=== PATIENT | female | born 1940 | race Caucasian/White ===

== ENCOUNTER 2020-03-31 15:25 | IRF | payer MEDICARE, SELFPAY ==
[2020-03-31 16:00] VITALS: BP 142/85; PULSE 84; RESP 18; TEMP 36.9; O2SAT 100; BMI 25.5
--- NOTE | 2020-03-31 16:07 | ADMGEN ---
This patient, Faviola Wren, was admitted to [facility] Room 222-02. Patient/family oriented to hospital policies and general routines including ID bracelet, bed and alarms, visiting hours, pain management, procedures, bathroom and other care routines, personal items, smoking policy, room service/diet, and visiting hours. Information on how to activate the Rapid Response Team has been discussed. Patient/Family are encouraged to report perceived risks to care and to ask questions if they do not understand what they are told or what they should do. 1525 Patient arrived to floor, very pleasant, knows name but not exactly where she is. Reported by ems that she was told several times what hospital she was going to., also reported by ems that patient has a history of dementia which was not reported to me from the hospital. Daughter at bedside at this time.
[2020-03-31] MEDS: DICYCLOMINE HCL 10 MG CAPSULE 20 MG PO ×2 (19:05→20:51)
[2020-03-31] MEDS: PANTOPRAZOLE 40 MG TABLET PO (19:05)
[2020-03-31 20:00] VITALS: PULSE 103; RESP 14; O2SAT 98
[2020-03-31 20:45] VITALS: BP 140/79; PULSE 103; RESP 14; TEMP 36.9; O2SAT 98
[2020-03-31] MEDS: ATORVASTATIN 40 MG TABLET PO (20:51)
[2020-04-01 04:44] LABS: Basophils Absolute Auto 0.1 K/mm3 (0.0-0.1); Basophils Percent Auto 0.9 % (0.2-1.2); Eosinophils Absolute Auto 0.3 K/mm3 (0-0.3); Eosinophils Percent Auto 3.9 % (0-4.4); Hemoglobin 13.2 g/dL (12.0-15.0); Immature Granulocyte Absolute 0.04 K/mm3 (0.00-0.031); Immature Granulocyte Percent A 0.5 % (0-0.5); Lymphocytes Absolute Auto 2.32 K/mm3 (0.9-3.2); Lymphocytes Percent Auto 29.3 % (18.3-44.2); Mean Corpuscular HGB Conc 33.8 g/dl (32-36); Mean Corpuscular Hemoglobin 30.6 pg (26-34); Mean Corpuscular Volume 90.3 fl (80-100); Mean Platelet Volume 9.6 fl (7.4-10.4); Monocytes Absolute Auto 0.5 K/mm3 (0.1-0.6); Monocytes Percent Auto 6.4 % (2.6-8.5); Neutrophils Absolute Auto 4.7 K/mm3 (1.3-6.7); Platelet Count Result 272 k/mm3 (150-375); Red Blood Count 4.32 M/mm3 (4.2-5.4); Red Cell Distribution Width 11.9 % (11.5-14.5); White Blood Count 7.9 K/mm3 (4.5-10.0)
[2020-04-01 04:58] LABS: Anion Gap 3 mmol/L (8-16); Blood Urea Nitrogen 20 mg/dL (7-17); Calcium 9.3 mg/dL (8.4-10.2); Carbon Dioxide 31 mmol/L (22-30); Chloride 104 mmol/L (98-107); Estimated CRCL calculation 42 ml/min; Estimated Glomerular Filt Rate > 60; Glucose 107 mg/dL (65-105); Potassium 4.1 mmol/L (3.4-5.0); Sodium 138 mmol/L (137-145)
[2020-04-01 05:37] VITALS: BP 133/85; PULSE 103; RESP 12; TEMP 35.9; O2SAT 96
[2020-04-01] MEDS: CLOPIDOGREL BISULFATE 75 MG TABLET PO (11:12)
[2020-04-01] MEDS: ASPIRIN 81 MG CHEWABLE TABLET PO (11:12)
[2020-04-01] MEDS: DICYCLOMINE HCL 10 MG CAPSULE 20 MG PO ×4 (11:13→21:00)
[2020-04-01] MEDS: EZETIMIBE 10 MG TABLET PO (11:13)
[2020-04-01] MEDS: PANTOPRAZOLE 40 MG TABLET PO ×2 (11:13→17:18)
--- NOTE | 2020-04-01 11:52 | PM.IMHP ---
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 The patient was face to face seen by this examiner at 11:30 a.m. on April 01, 2020 The patient is an 80-year-old right-handed white woman with a past medical history of hypertension who presented to [facility] on March 26, 2020. The patient reported walking into a catching on the day of admission and having an acute onset of severe dizziness followed by headache on the right side. She was noted to have nystagmus to the right and severe dizziness and continued since this event and she was barely able to move from the bed without worsening symptoms. CT of the showed no definite evidence of acute intracranial hemorrhage. Brain MRI demonstrated an acute infarct in the paramedian inferior left cerebellar hemisphere with extension into the posterior paramedian left superior carmina / superior middle a in the left PICA distribution. The carotid ultrasound showed 50 to 79% is stenosis in the left internal carotid artery and no stenosis in the right. Chest x-ray revealed mildly hyperinflated lungs without definite evidence of focal consolidation and mild prominence of pulmonary vasculature. MRA showed no significant stenosis of any of the intracranial vasculature and the left PICA was noted to be intact at the takeoff from the left vertebral. The patient was noted to have binocular diplopia that is horizontal in orientation. Echocardiogram showed ejection fraction of 65%. Neurology order to continue aspirin statin and Plavix The patient has not traveled outside the [place] contact with someone who is ill that has traveled outside the [place] in the past 21 days. The patient has not traveled to [place] of the [place] that is experiencing no transmission of the Coronavirus and has not had close personal contact with anyone that has. The patient does not have a fever. The patient is not experiencing low respiratory illness symptoms. Therapy was initiated at the acute care facility and the patient was transferred to us from [facility] on March 31, 2020. The patient has had no major surgery in the last days. Patient has had no falls in the past year. Patient has had no falls with injury in the past year. Past medical history, headaches, migraines, hyperlipidemia, hypertension, dizziness, near-syncope, UTI, nystagmus, peripheral vertigo Past surgical history hysterectomy and bilateral foot surgery. Family history patient denies any family history of strokes or clotting disorders. Social history the patient lives in a 2 story home with daughter Charlene. Charlene is able to assist the patient after discharge from rehab. There are 16 stressed to the patient's bedroom on the 2nd floor and 1 step to enter the home. The patient stated she has not had any surgery in the past and days, she denies any falls in the past year. She never smoked no drug use is alcohol monthly or less. The patient is unable to recall any family history in particular family history of any close relatives at Prior level of functions was quite independent in all spheres of daily activities including ambulating at least 750 feet independently without assistive device and she was able to navigate 16 stairs independently. Current level function is as follows Eating supervision, oral care is supervision, toileting hygiene is substantial maximal, shower bath substantial maximal, Sineff bodies partial moderate, lower body substantial maximal, foot very substantial maximal, rolling left to right supervision, sit to lying is dependent, lying to sitting is dependent, [id number] is dependent, bed to
[2020-04-01 14:00] VITALS: BP 142/78; PULSE 92; RESP 18; TEMP 36.2; O2SAT 98
[2020-04-01 14:43] VITALS: BMI 25.5
--- NOTE | 2020-04-01 14:57 | PCNSR ---
On 04/01/20, the student, Shannon Pearson, provided care and completed [facility] documentation on this patient. I have reviewed the student's documentation and agree with the findings.
[2020-04-01 20:00] VITALS: O2SAT 98
[2020-04-01] MEDS: ATORVASTATIN 40 MG TABLET PO (21:00)
[2020-04-01 22:00] VITALS: BP 110/60; PULSE 86; RESP 17; TEMP 36.3; O2SAT 98
[2020-04-02] MEDS: polyethylene glycoL 3350 17 GM POWD.PACK PO ×2 (02:23→21:44)
[2020-04-02 03:52] LABS: Add Urine Microscopic? YES; Appearance Urine Clear (Clear); Bilirubin Urine Negative (Negative); Blood Urine 1+ (Negative); Color Urine Straw (Yellow); Glucose Urine UA Negative (Negative); Ketones Urine Negative (Negative); Leukocyte Esterase Ur Negative LEU/UL (Negative); Mucus Urine Rare /lpf; Nitrate Urine Negative (Negative); Protein Urine Negative (Negative); Specific Grav Ur 1.006 (1.001-1.035); Squamous Epithelial Cell Urine Rare /hpf (Few); Urobilinogen Urine Negative mg/dL (<2.0); WBC Urine 0-3 /hpf
--- NOTE | 2020-04-02 04:00 | PC.NURSE ---
)0315 pt unable to urinate after several tries.Bladder scan showed 966 ml. Straight cathed produced 1250 ml. UA with flex to culture sent.
[2020-04-02 06:00] VITALS: BP 125/74; PULSE 80; RESP 20; TEMP 37; O2SAT 94
[2020-04-02] MEDS: PANTOPRAZOLE 40 MG TABLET PO ×2 (09:08→16:54)
[2020-04-02] MEDS: CLOPIDOGREL BISULFATE 75 MG TABLET PO (09:08)
[2020-04-02] MEDS: DICYCLOMINE HCL 10 MG CAPSULE 20 MG PO ×4 (09:09→20:48)
[2020-04-02] MEDS: ASPIRIN 81 MG CHEWABLE TABLET PO (09:09)
[2020-04-02] MEDS: EZETIMIBE 10 MG TABLET PO (09:09)
--- NOTE | 2020-04-02 12:01 | WPDNEURORHBP ---
Subjective Date/time seen: 04/02/20 12:01 Interval history: this 80-year-old woman is here after having had a brainstem stroke involving the cerebellar hemispheres carmina and medulla which has left her with the ataxia gait trouble and abnormal finger to kwok heel to [id number] and ataxia The patient denies any headache nausea vomiting chest pain shortness of breath fever chills sore throat Review of Systems Review of Systems: All systems reviewed & are unremarkable except as noted in HPI and below Functional Status Ambulation Ability Ability to Ambulate 10 Feet: Maximum Assistance X 1 Ambulation Assistive Devices: Walker, Wheeled Exam Narrative: Exam Narrative: patient is awake and alert well oriented she has ataxia of the gait imbalance and needing assistance abnormal [id number] and also positive Romberg otherwise no focal motor or sensory deficit or which is understandable considering it was a brainstem stroke and did not involve the the more over the sensory fibers Patient's head and neck examination is normal neck is supple lungs are clear cardiovascular examination is negative abdomen is soft nontender extremities reveal no deformity Objective Data Vital Signs Vital Signs: Vital Signs - 24 hr 04/01/20 14:00 04/01/20 20:00 04/01/20 22:00 Temperature 36.2 C L 36.3 C L Pulse Rate 92 86 Respiratory Rate 18 17 Blood Pressure 142/78 H 110/60 Pulse Oximetry 98 98 98 04/02/20 06:00 Temperature 37.0 C Pulse Rate 80 Respiratory Rate 20 Blood Pressure 125/74 Pulse Oximetry 94 Intake/Output Intake/Output: Intake & Output 03/30/20 03/31/20 04/01/20 04/02/20 23:59 23:59 23:59 23:59 Intake Total 720 100 Output Total 1250 Balance 720 -1150 Meds/Results Medications: Active Medications Generic Name Dose Route Start Last Admin Trade Name Freq PRN Reason Stop Dose Admin Acetaminophen 650 mg 03/31/20 16:42 Acetaminophen 325 Mg Tablet PO Q6H PRN Pain, Mild Aspirin 81 mg 04/01/20 09:00 04/02/20 09:09 Aspirin 81 Mg Chewable Tablet PO 81 mg DAILY PETE Administration Atorvastatin Calcium 40 mg 03/31/20 21:00 04/01/20 21:00 Atorvastatin 40 Mg Tablet PO 40 mg HS PETE Administration Benzonatate 100 mg 03/31/20 16:42 Benzonatate 100 Mg Capsule PO Q8H PRN Cough Bisacodyl 10 mg 03/31/20 16:42 Bisacodyl 5 Mg Tablet Ec PO Q24H PRN Constipation Clopidogrel Bisulfate 75 mg 04/01/20 09:00 04/02/20 09:08 Clopidogrel Bisulfate 75 Mg Tablet PO 75 mg DAILY PETE Administration Dicyclomine HCl 20 mg 03/31/20 17:00 04/02/20 09:09 Dicyclomine Hcl 10 Mg Capsule PO 20 mg QID PEET Administration Ezetimibe 10 mg 04/01/20 09:00 04/02/20 09:09 Ezetimibe 10 Mg Tablet PO 10 mg DAILY PETE Administration Magnesium Hydroxide 30 ml 03/31/20 16:42 Magnesium Hydroxide Susp 30 Ml Udc PO Q6H PRN Indigestion Meclizine HCl 25 mg 03/31/20 16:42 Meclizine Hcl 25 Mg Tablet PO Q8H PRN Dizziness Melatonin 5 mg 03/31/20 16:42 Melatonin 5 Mg Tablet PO HS PRN Sleep Pantoprazole Sodium 40 mg 03/31/20 17:00 04/02/20 09:08 Pantoprazole 40 Mg Tablet PO 40 mg BID PETE Administration Polyethylene Glycol 17 gm 03/31/20 16:42 04/02/20 02:23 Polyethylene Glycol 3350 17 Gm Powd.Pack PO 17 gm DAILY PRN Administration Constipation Labs Labs: Laboratory Results - last 24 hr 04/02/20 03:45 Urine Color Straw Urine Appearance Clear Urine pH 7.0 Ur Specific [place] 1.006 Urine Protein Negative Urine Glucose (UA) Negative Urine Ketones Negative Ur Blood (Man) 1+ H Urine Nitrate Negative Urine Bilirubin Negative Urine Urobilinogen Negative Leukocyte Esterase Rfl Negative Urine WBC 0-3 Ur Squamous Epith Cells Rare Urine Mucus Rare Progress Note: A&P Assessment and Plan (1) Hyperlipidemia: Code(s): E
--- NOTE | 2020-04-02 13:35 | PCNSR ---
On 04/02/20, the student, Shannon Pearson, provided care and completed [facility] documentation on this patient. I have reviewed the student's documentation and agree with the findings.
[2020-04-02 14:00] VITALS: BP 116/65; PULSE 97; RESP 18; TEMP 36.9; O2SAT 98
--- NOTE | 2020-04-02 16:14 | RPD ---
INDIVIDUALIZED PLAN OF CARE FOR Chikis [facility] Brief Synthesis of Pre-Admission Screen, Post-Admission Evaluation and Therapy Evaluations: The patient presents to rehab with acute left ICA ischemic stroke. Comorbidities include Headache, dizziness, near syncope, HTN, HLD, UTI, nystagmus, peripheral vertigo, hyponatremia, hyperglycemia. The patient requires physician services for neurology services, medical oversight, and coordination of care. Emotional needs will be monitored as depression is a common sequelae of stroke. The patient needs physician monitoring and treatment of anemia, dizziness, elevated blood pressure, hyponatremia, hyperglycemia, near syncope, monitoring for adverse reactions to new medications, monitoring of infection, pain control. The patient requires nursing services for frequent neuro checks, anticoagulation therapy, medication management and education, pressure relief and skin care management, monitoring of labs, bowel and bladder training, and fall/safety precautions. Deficits include: ADLs, Balance, Endurance, Family Training/Education, Mobility, Pain Management, Safety, Strength, Transfers,ROM Broker/Case Management for: Discharge Planning and Patient/Family Counseling Physical Therapy: 5 days per week for 75 minutes. Treatments may include: Therapeutic Exercise, Gait Training, Neuromuscular Re-education, Transfer Training, Community Reintegration, Bed Mobility, Patient/Family Education, Wheelchair Mobility Group Therapy/Concurrent Therapy Rationales: -Improve attention span during functional activities in a distracted environment. -Enhance problem solving and/or adequate judgment skills during functional activities in a distracted environment. -Promote increased safety awareness in a distracted environment to reduce fall risk with functional tasks, transfers, and ambulation to allow a more safe, self-sufficient return to the home environment. -Improve dynamic balance skills to promote safety and independence with functional activities in a distracted environment for maximum gain. Occupational Therapy: 5 days per week for 75 minutes. Treatments may include: Therapeutic Exercise, Therapeutic Activity, Cognitive Training, Self-Care Transfer Training, Community Reintegration, Home Management, Patient/Family Education, Wheelchair Mobility Training, Energy Conservation Training Group Therapy/Concurrent Therapy Rationales: -Allow therapist to observe and teach generalization and carry-over of skills learned in individual therapy. -Enhance problem solving and sequencing skills during therapeutic activities in a distracted environment. -Promote increased safety awareness in a realistic setting to reduce fall risk with functional tasks due to visual and verbal distractions. -Increase functional level with ADLs, ADL transfers and use of adaptive equipment through therapeutic activities with others while promoting safety to allow a more safe, self-sufficient return home. Speech Therapy: 5 days per week for 30 minutes. Treatments may include: Dysphasia Therapy, Speech/Language/Communication Therapy, Cognitive Training, Patient/Family Education Group Therapy/Concurrent Therapy - Rationale: -Allow therapist to observe and teach generalization and carry-over of skills learned in individual therapy. -Improve comprehension skills with complex or abstract ideas through discussion in a realistic setting. -Enhance problem solving skills with complex issues during activities in a distracted environment. -Promote increased memory skills and concentration in a distracted environment for a safe transition home. -Improve attention and focus with language/communication skills in a realistic and supportive therapeutic setting. -Allow for practice of expression of basic needs and ideas through functional activities with others. Medical Prognosis: Good Anticipated Length of Stay: 12 days Rehab Goals: Eating Goal: 06-Independent Oral Hygiene Goal:
[2020-04-02] MEDS: ATORVASTATIN 40 MG TABLET PO (20:48)
[2020-04-02] MEDS: SENNA/DOCUSATE SODIUM TABLET 2 TAB PO (20:48)
[2020-04-02 22:00] VITALS: BP 158/72; PULSE 73; RESP 16; TEMP 37.1; O2SAT 96
[2020-04-03 06:00] VITALS: BP 141/80; PULSE 90; RESP 16; TEMP 36.6; O2SAT 94
[2020-04-03] MEDS: PANTOPRAZOLE 40 MG TABLET PO ×2 (08:44→18:15)
[2020-04-03] MEDS: DICYCLOMINE HCL 10 MG CAPSULE 20 MG PO ×4 (08:44→20:31)
[2020-04-03] MEDS: CLOPIDOGREL BISULFATE 75 MG TABLET PO (08:44)
[2020-04-03] MEDS: ASPIRIN 81 MG CHEWABLE TABLET PO (08:44)
[2020-04-03] MEDS: EZETIMIBE 10 MG TABLET PO (08:44)
[2020-04-03 14:00] VITALS: BP 114/51; PULSE 92; RESP 18; TEMP 36.4; O2SAT 95
[2020-04-03] MEDS: ATORVASTATIN 40 MG TABLET PO (20:31)
[2020-04-03] MEDS: SENNA/DOCUSATE SODIUM TABLET 2 TAB PO (20:31)
[2020-04-03 21:32] VITALS: BP 121/68; PULSE 83; RESP 18; TEMP 37.1; O2SAT 95
[2020-04-04 06:00] VITALS: BP 150/76; PULSE 90; RESP 16; TEMP 36.3; O2SAT 97
[2020-04-04] MEDS: BISACODYL 5 MG TABLET EC 10 MG PO (09:58)
[2020-04-04] MEDS: ASPIRIN 81 MG CHEWABLE TABLET PO (09:59)
[2020-04-04] MEDS: DICYCLOMINE HCL 10 MG CAPSULE 20 MG PO (09:59)
[2020-04-04] MEDS: PANTOPRAZOLE 40 MG TABLET PO ×2 (09:59→17:30)
[2020-04-04] MEDS: EZETIMIBE 10 MG TABLET PO (09:59)
[2020-04-04] MEDS: CLOPIDOGREL BISULFATE 75 MG TABLET PO (09:59)
--- NOTE | 2020-04-04 11:03 | WPDNEURORHBP ---
Subjective Date/time seen: 04/04/20 11:03 Interval history: this 80-year-old woman is here after having had posterior cervical stool for stroke with ataxia does balance diplopia from which she is improving overall she denies any headache nausea vomiting chest pain shortness of breath the complain she has had the constipation she did move her bowel however she will continue to use stool softeners to clear her bowels she she is afebrile and progressing rehab Review of Systems Review of Systems: All systems reviewed & are unremarkable except as noted in HPI and below Functional Status Ambulation Ability Ability to Ambulate 10 Feet: Maximum Assistance X 1 Ambulation Assistive Devices: Walker, Wheeled Exam Narrative: Exam Narrative: the patient is awake alert well oriented time place and person improving diplopia and also the ataxia, she has not any distress eyes ear nose throat normal neck is supple lungs are clear cardiovascular examination stable extremities are removed from Objective Data Vital Signs Vital Signs: Vital Signs - 24 hr 04/03/20 14:00 04/03/20 21:32 04/04/20 06:00 Temperature 36.4 C L 37.1 C 36.3 C L Pulse Rate 92 83 90 Respiratory Rate 18 18 16 Blood Pressure 114/51 L 121/68 150/76 H Pulse Oximetry 95 95 97 Intake/Output Intake/Output: Intake & Output 04/01/20 04/02/20 04/03/20 04/04/20 23:59 23:59 23:59 23:59 Intake Total 720 580 720 360 Output Total 1250 1250 Balance 720 -670 -530 360 Meds/Results Medications: Active Medications Generic Name Dose Route Start Last Admin Trade Name Freq PRN Reason Stop Dose Admin Acetaminophen 650 mg 03/31/20 16:42 Acetaminophen 325 Mg Tablet PO Q6H PRN Pain, Mild Aspirin 81 mg 04/01/20 09:00 04/04/20 09:59 Aspirin 81 Mg Chewable Tablet PO 81 mg DAILY PETE Administration Atorvastatin Calcium 40 mg 03/31/20 21:00 04/03/20 20:31 Atorvastatin 40 Mg Tablet PO 40 mg HS PETE Administration Benzonatate 100 mg 03/31/20 16:42 Benzonatate 100 Mg Capsule PO Q8H PRN Cough Bisacodyl 10 mg 03/31/20 16:42 04/04/20 09:58 Bisacodyl 5 Mg Tablet Ec PO 10 mg Q24H PRN Administration Constipation Clopidogrel Bisulfate 75 mg 04/01/20 09:00 04/04/20 09:59 Clopidogrel Bisulfate 75 Mg Tablet PO 75 mg DAILY PETE Administration Dicyclomine HCl 20 mg 03/31/20 17:00 04/04/20 09:59 Dicyclomine Hcl 10 Mg Capsule PO 20 mg QID PETE Administration Ezetimibe 10 mg 04/01/20 09:00 04/04/20 09:59 Ezetimibe 10 Mg Tablet PO 10 mg DAILY PETE Administration Lactulose 30 gm 04/04/20 09:48 Lactulose 20 Gm/30 Ml Udc PO DAILY PRN Constipation Magnesium Hydroxide 30 ml 03/31/20 16:42 Magnesium Hydroxide Susp 30 Ml Udc PO Q6H PRN Indigestion Meclizine HCl 25 mg 03/31/20 16:42 Meclizine Hcl 25 Mg Tablet PO Q8H PRN Dizziness Melatonin 5 mg 03/31/20 16:42 Melatonin 5 Mg Tablet PO HS PRN Sleep Pantoprazole Sodium 40 mg 03/31/20 17:00 04/04/20 09:59 Pantoprazole 40 Mg Tablet PO 40 mg BID PETE Administration Polyethylene Glycol 17 gm 04/04/20 21:00 Polyethylene Glycol 3350 17 Gm Powd.Pack PO HS PETE Senna/Docusate Sodium 2 tab 04/02/20 21:00 04/03/20 20:31 Senna/Docusate Sodium Tablet PO 2 tab HS PETE Administration Progress Note: A&P Assessment and Plan (1) Hyperlipidemia: Code(s): E78.5 - Hyperlipidemia, unspecified Status: Acute (2) Nystagmus: Code(s): H55.00 - Unspecified nystagmus Status: Acute (3) Hypertension: Code(s): I10 - Essential (primary) hypertension Status: Acute (4) Diplopia: Code(s): H53.2 - Diplopia Status: Acute (5) Ataxia: Code(s): R27.0 - Ataxia, unspecified Status: Acute Additional Plan discussed with the patient we will relieve her constipation with the use of the multiple stool softeners an
[2020-04-04 14:00] VITALS: BP 116/66; PULSE 88; RESP 16; TEMP 36.4; O2SAT 98
[2020-04-04] MEDS: ATORVASTATIN 40 MG TABLET PO (20:44)
[2020-04-04] MEDS: SENNA/DOCUSATE SODIUM TABLET 2 TAB PO (20:44)
[2020-04-04] MEDS: BACLOFEN 10 MG TABLET PO (20:45)
[2020-04-04 20:52] VITALS: BP 116/86; PULSE 84; RESP 16; TEMP 36.9; O2SAT 98
[2020-04-05 06:00] VITALS: BP 116/64; PULSE 66; RESP 14; TEMP 36.1; O2SAT 99
[2020-04-05 08:00] VITALS: PULSE 66; RESP 14; O2SAT 99
[2020-04-05] MEDS: PANTOPRAZOLE 40 MG TABLET PO ×2 (09:51→17:21)
[2020-04-05] MEDS: EZETIMIBE 10 MG TABLET PO (09:52)
[2020-04-05] MEDS: BACLOFEN 10 MG TABLET PO ×2 (09:52→20:09)
[2020-04-05] MEDS: CLOPIDOGREL BISULFATE 75 MG TABLET PO (09:52)
[2020-04-05] MEDS: ASPIRIN 81 MG CHEWABLE TABLET PO (09:52)
--- NOTE | 2020-04-05 13:59 | WPDNEURORHBP ---
Subjective Date/time seen: 04/05/20 13:59 80 years old right-handed female admitted to the rehab floor with the diagnosis of stroke involving the left side and documentation of his stroke in PICA distribution involving parent median inferior left cerebellar hemisphere and paramedian left superior carmina and medulla, receiving aspirin 81 mg daily with atorvastatin 40 mg daily clopidogrel 75 mg daily and Zetia 10 mg daily routine lab on 04/01 normal Review of Systems Review of Systems: All systems reviewed & are unremarkable except as noted in HPI and below Functional Status Ambulation Ability Ability to Ambulate 10 Feet: Maximum Assistance X 1 Ability to Ambulate 50 Feet With 2 Turns: Maximum Assistance X 1 Ambulation Assistive Devices: Walker, Wheeled Exam Narrative: Exam Narrative: examination reveals her to be awake alert oriented x3 following the instructions fairly well,,, neck is supple with no restriction of range of motion no cervical bruit, heart regular ,lungs clear, no rhonchi, no crepitations, abdomen soft, no organomegaly, normal bowel sounds and neurological examination unchanged Objective Data Vital Signs Vital Signs: Vital Signs - 24 hr 04/04/20 14:00 04/04/20 20:52 04/05/20 06:00 Temperature 36.4 C L 36.9 C 36.1 C L Pulse Rate 88 84 66 Respiratory Rate 16 16 14 Blood Pressure 116/66 116/86 116/64 Pulse Oximetry 98 98 99 04/05/20 08:00 Temperature Pulse Rate 66 Respiratory Rate 14 Blood Pressure Pulse Oximetry 99 Intake/Output Intake/Output: Intake & Output 04/02/20 04/03/20 04/04/20 04/05/20 23:59 23:59 23:59 23:59 Intake Total 580 720 960 480 Output Total 1250 1250 1250 Balance -670 -530 960 -770 Meds/Results Medications: Active Medications Generic Name Dose Route Start Last Admin Trade Name Freq PRN Reason Stop Dose Admin Acetaminophen 650 mg 03/31/20 16:42 Acetaminophen 325 Mg Tablet PO Q6H PRN Pain, Mild Aspirin 81 mg 04/01/20 09:00 04/05/20 09:52 Aspirin 81 Mg Chewable Tablet PO 81 mg DAILY PETE Administration Atorvastatin Calcium 40 mg 03/31/20 21:00 04/04/20 20:44 Atorvastatin 40 Mg Tablet PO 40 mg HS PETE Administration Baclofen 10 mg 04/04/20 21:00 04/05/20 09:52 Baclofen 10 Mg Tablet PO 10 mg Q12HR PETE Administration Benzonatate 100 mg 03/31/20 16:42 Benzonatate 100 Mg Capsule PO Q8H PRN Cough Bisacodyl 10 mg 03/31/20 16:42 04/04/20 09:58 Bisacodyl 5 Mg Tablet Ec PO 10 mg Q24H PRN Administration Constipation Clopidogrel Bisulfate 75 mg 04/01/20 09:00 04/05/20 09:52 Clopidogrel Bisulfate 75 Mg Tablet PO 75 mg DAILY PETE Administration Dicyclomine HCl 20 mg 03/31/20 17:00 04/04/20 09:59 Dicyclomine Hcl 10 Mg Capsule PO 20 mg QID PETE Administration Ezetimibe 10 mg 04/01/20 09:00 04/05/20 09:52 Ezetimibe 10 Mg Tablet PO 10 mg DAILY PETE Administration Lactulose 30 gm 04/04/20 09:48 Lactulose 20 Gm/30 Ml Udc PO DAILY PRN Constipation Magnesium Hydroxide 30 ml 03/31/20 16:42 Magnesium Hydroxide Susp 30 Ml Udc PO Q6H PRN Indigestion Meclizine HCl 25 mg 03/31/20 16:42 Meclizine Hcl 25 Mg Tablet PO Q8H PRN Dizziness Melatonin 5 mg 03/31/20 16:42 Melatonin 5 Mg Tablet PO HS PRN Sleep Pantoprazole Sodium 40 mg 03/31/20 17:00 04/05/20 09:51 Pantoprazole 40 Mg Tablet PO 40 mg BID PETE Administration Polyethylene Glycol 17 gm 04/04/20 21:00 04/04/20 21:22 Polyethylene Glycol 3350 17 Gm Powd.Pack PO Not Given HS PETE Senna/Docusate Sodium 2 tab 04/02/20 21:00 04/04/20 20:44 Senna/Docusate Sodium Tablet PO 2 tab HS PETE Administration Progress Note: A&P Assessment and Plan (1) Hyperlipidemia: Code(s): E78.5 - Hyperlipidemia, unspecified Status: Acute (2) Hypertension: Code(s): I10 - Essential (primary) hypertension Status: A
[2020-04-05 14:00] VITALS: BP 95/52; PULSE 77; RESP 16; TEMP 36.1; O2SAT 98
[2020-04-05] MEDS: ATORVASTATIN 40 MG TABLET PO (20:09)
[2020-04-05] MEDS: SENNA/DOCUSATE SODIUM TABLET 2 TAB PO (20:09)
[2020-04-05] MEDS: polyethylene glycoL 3350 17 GM POWD.PACK PO (20:09)
[2020-04-05 22:00] VITALS: BP 115/54; PULSE 73; RESP 20; TEMP 36.1; O2SAT 98
[2020-04-06 06:00] VITALS: BP 136/64; PULSE 70; RESP 20; TEMP 36.3; O2SAT 98
[2020-04-06 08:00] VITALS: PULSE 70; RESP 20; O2SAT 98
[2020-04-06] MEDS: CLOPIDOGREL BISULFATE 75 MG TABLET PO (09:20)
[2020-04-06] MEDS: BACLOFEN 10 MG TABLET PO ×2 (09:21→21:02)
[2020-04-06] MEDS: PANTOPRAZOLE 40 MG TABLET PO ×2 (09:21→17:21)
[2020-04-06] MEDS: ASPIRIN 81 MG CHEWABLE TABLET PO (09:21)
[2020-04-06] MEDS: EZETIMIBE 10 MG TABLET PO (09:22)
--- NOTE | 2020-04-06 13:50 | WPDREHABHP ---
H&P: HPI History of Present Illness Date/Time: 04/06/20 13:50 80 years old right-handed female admitted to the rehab with diagnosis of his stroke involving the left side of the body along with the documentation of the stroke in the PICA distribution involving the inferior left cerebellar hemisphere and paramedian left superior carmina and medulla she is receiving aspirin 81 mg daily with atorvastatin 40 mg daily clopidogrel 75 mg daily and remains stable. Chief complaint: CVA Narrative: Chikis Wren is a 80 year old female Review of Systems Review of Systems All systems reviewed & are unremarkable except as noted in HPI and below PMFSH Past Medical History Medical History (Updated 04/01/20 @ 12:07 by Lebron Simon MD) Hyperlipidemia Hypertension Family History Family History Father Congestive heart failure Hypertension Mother Cancer of oral cavity Hypertension Sibling Diabetes mellitus Kidney failure Breast adenoma Social History Social History Smoking status: Never smoker Drinks per week: 4 Substance use: never Gender identity (if verbalized by the patient): Female Spiritual care concerns: No Meds Home Medications and Allergies Home Medications Medication Instructions Recorded Confirmed Type acetaminophen [Tylenol] 650 mg PO Q6H PRN 03/31/20 03/31/20 History aspirin 81 mg PO DAILY 03/31/20 03/31/20 History atorvastatin [Lipitor] 40 mg PO HS 03/31/20 03/31/20 History benzonatate [Tessalon Perles] 100 mg PO Q8H PRN 03/31/20 03/31/20 History bisacodyl [Dulcolax (bisacodyl)] 10 mg PO Q24H PRN 03/31/20 03/31/20 History clopidogrel [Plavix] 75 mg PO DAILY 03/31/20 03/31/20 History dicyclomine [Bentyl] 20 mg PO QID 03/31/20 03/31/20 History ezetimibe [Zetia] 10 mg PO DAILY 03/31/20 03/31/20 History magnesium hydroxide [Milk of 30 ml PO Q6H PRN 03/31/20 03/31/20 History Magnesia] meclizine 25 mg PO Q8H PRN 03/31/20 03/31/20 History melatonin 5 mg PO HS PRN 03/31/20 03/31/20 History pantoprazole [Protonix] 40 mg PO BID 03/31/20 03/31/20 History polyethylene glycol 3350 [Miralax] 17 g PO DAILY PRN 03/31/20 03/31/20 History Allergies Allergy/AdvReac Type Severity Reaction Status Date / Time Sulfa (Sulfonamide Allergy Hives Verified 03/31/20 16:47 Antibiotics) Vital Signs Vital Signs - 24 hr 04/05/20 14:00 04/05/20 22:00 04/06/20 06:00 Temperature 36.1 C L 36.1 C L 36.3 C L Pulse Rate 77 73 70 Respiratory Rate 16 20 20 Blood Pressure 95/52 L 115/54 L 136/64 Pulse Oximetry 98 98 98 04/06/20 08:00 Temperature Pulse Rate 70 Respiratory Rate 20 Blood Pressure Pulse Oximetry 98 Exam Narrative Exam Narrative: Examination today reveals her to be awake alert cooperative. She is following the instructions very well. Neck is supple with no restriction of the range of the motion. No cervical bruit. Heart regular with no murmur. Lungs clear with no rhonchi. Abdomen is soft with normal bowel sounds no tenderness and no organomegaly. Neurological examination unchanged. Assessment and Plan Assessment and plan (1) Hyperlipidemia: Code(s): E78.5 - Hyperlipidemia, unspecified Status: Acute (2) Hypertension: Code(s): I10 - Essential (primary) hypertension Status: Acute (3) Nystagmus: Code(s): H55.00 - Unspecified nystagmus Status: Acute (4) Diplopia: Code(s): H53.2 - Diplopia Status: Acute (5) Ataxia: Code(s): R27.0 - Ataxia, unspecified Status: Acute (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itional Plan Continue the treatment as such
[2020-04-06 14:00] VITALS: BP 104/69; PULSE 77; RESP 18; TEMP 36.1; O2SAT 99
[2020-04-06] MEDS: ATORVASTATIN 40 MG TABLET PO (21:02)
[2020-04-06] MEDS: SENNA/DOCUSATE SODIUM TABLET 2 TAB PO (21:02)
[2020-04-06] MEDS: polyethylene glycoL 3350 17 GM POWD.PACK PO (21:04)
[2020-04-06 22:00] VITALS: BP 129/72; PULSE 84; RESP 19; TEMP 36; O2SAT 100
[2020-04-07 06:00] VITALS: BP 135/66; PULSE 70; RESP 18; TEMP 36.1; O2SAT 98
[2020-04-07] MEDS: EZETIMIBE 10 MG TABLET PO (08:33)
[2020-04-07] MEDS: ASPIRIN 81 MG CHEWABLE TABLET PO (08:33)
[2020-04-07] MEDS: PANTOPRAZOLE 40 MG TABLET PO ×2 (08:34→17:36)
[2020-04-07] MEDS: CLOPIDOGREL BISULFATE 75 MG TABLET PO (08:34)
[2020-04-07] MEDS: BACLOFEN 10 MG TABLET PO ×2 (08:37→20:50)
--- NOTE | 2020-04-07 10:15 | PCPTNOTE ---
[facility] was evaluated for a wheeled walker on 04/07/2020 by this physical therapist. The wheeled walker will resolve patient's mobility limitations and will be used for ADL's within the home. The patient can safely use the wheeled walker. ?The wheeled walker will resolve the patient?s mobility deficits, including LE weakness, incoordination, and decreased balance.
[2020-04-07 14:00] VITALS: BP 128/75; PULSE 78; RESP 16; TEMP 36.4; O2SAT 100
[2020-04-07 20:48] VITALS: BP 131/76; PULSE 73; RESP 20; TEMP 36.2; O2SAT 97
[2020-04-07] MEDS: polyethylene glycoL 3350 17 GM POWD.PACK PO (20:49)
[2020-04-07] MEDS: SENNA/DOCUSATE SODIUM TABLET 2 TAB PO (20:49)
[2020-04-07] MEDS: ATORVASTATIN 40 MG TABLET PO (20:50)
[2020-04-08 05:03] VITALS: BP 115/69; PULSE 69; RESP 18; TEMP 36.1; O2SAT 97
[2020-04-08 05:39] LABS: Basophils Absolute Auto 0.1 K/mm3 (0.0-0.1); Basophils Percent Auto 0.9 % (0.2-1.2); Eosinophils Absolute Auto 0.3 K/mm3 (0-0.3); Eosinophils Percent Auto 3.6 % (0-4.4); Hematocrit 37.7 % (37.0-47.0); Hemoglobin 12.4 g/dL (12.0-15.0); Immature Granulocyte Absolute 0.03 K/mm3 (0.00-0.031); Immature Granulocyte Percent A 0.4 % (0-0.5); Lymphocytes Absolute Auto 1.95 K/mm3 (0.9-3.2); Lymphocytes Percent Auto 27.9 % (18.3-44.2); Mean Corpuscular HGB Conc 32.9 g/dl (32-36); Mean Corpuscular Hemoglobin 30.5 pg (26-34); Mean Corpuscular Volume 92.9 fl (80-100); Mean Platelet Volume 9.9 fl (7.4-10.4); Monocytes Absolute Auto 0.4 K/mm3 (0.1-0.6); Monocytes Percent Auto 5.9 % (2.6-8.5); Neutrophils Absolute Auto 4.3 K/mm3 (1.3-6.7); Neutrophils Percent Auto 61.3 % (45.5-73.1); Platelet Count Result 283 k/mm3 (150-375); Red Blood Count 4.06 M/mm3 (4.2-5.4); Red Cell Distribution Width 11.7 % (11.5-14.5)
[2020-04-08 05:46] LABS: Anion Gap 3 mmol/L (8-16); Blood Urea Nitrogen 15 mg/dL (7-17); Calcium 9.6 mg/dL (8.4-10.2); Carbon Dioxide 32 mmol/L (22-30); Chloride 105 mmol/L (98-107); Estimated CRCL calculation 42 ml/min; Estimated Glomerular Filt Rate > 60; Glucose 103 mg/dL (65-105); Potassium 4.1 mmol/L (3.4-5.0); Sodium 140 mmol/L (137-145)
[2020-04-08] MEDS: CLOPIDOGREL BISULFATE 75 MG TABLET PO (10:07)
[2020-04-08] MEDS: ASPIRIN 81 MG CHEWABLE TABLET PO (10:07)
[2020-04-08] MEDS: BACLOFEN 10 MG TABLET PO ×2 (10:07→20:03)
[2020-04-08] MEDS: PANTOPRAZOLE 40 MG TABLET PO ×2 (10:07→17:12)
[2020-04-08] MEDS: EZETIMIBE 10 MG TABLET PO (10:08)
[2020-04-08 14:00] VITALS: BP 128/72; PULSE 76; RESP 18; TEMP 36.3; O2SAT 99
--- NOTE | 2020-04-08 14:46 | PCNFU ---
Nutrition Follow-Up Complete: Food and nutrition related knowledge deficit related to stroke prevention, as evidenced by occurrence of CVA and pt interview. Pt. will familiarize herself with heart healthy diet approach, and understand ways to modify her diet accordingly pre-discharge. Goal: achieved Pt current nutrition is Heart Healthy, which is appropriate. Nutrition recommendation: continue to abide by heart healthy national guidelines to help support stroke prevention. Intakes fluctuate from 50-100% with average closer to 75%. Last recorded weight is 63.3 kg, recommend updating prior to discharge. Bowel Motility: last recorded BM from nurse spreadsheet on 04/08 Labs Reviewed: Hgb (12.4), Hct (37.7), BUN (15) Meds Noted: Protonix, Plavix, Zetia, Senokot, Lipitor, Miralax, Bentyl Additional Notes: integumentary system is WNL. Monitor pt intake and output; follow up in 7 days.
--- NOTE | 2020-04-08 14:58 | PCNSR ---
On 04/08/20, the student, Shannon Pearson, provided care and completed [facility] documentation on this patient. I have reviewed the student's documentation and agree with the findings.
--- NOTE | 2020-04-08 17:29 | WPDNEURORHBP ---
Subjective Date/time seen: 04/08/20 17:29 80 years old right-handed female has been admitted to rehab floor with diagnosis of stroke involving the left side of her body along with documentation of stroke in the past PICA distribution,she continues to receive aspirin ,atorvastatin ,clopidogrel, has no specific complaints on today's visit Review of Systems Review of Systems: All systems reviewed & are unremarkable except as noted in HPI and below Functional Status Ambulation Ability Ability to Ambulate 10 Feet: Moderate Assistance X 1 Ability to Ambulate 50 Feet With 2 Turns: Moderate Assistance X 1 Ability to Ambulate 150 Feet: Moderate Assistance X 1 Ambulation Assistive Devices: Walker, Wheeled Transfers Ability Ability to Transfer In/Out of Chair: Moderate Assistance X 1 Exam Narrative: Exam Narrative: on examination she is awake following the instructions fairly well,neck supple with no restrictions of range of motion ,heart regular with no murmur,lungs clear with no rhonchi ,abdomen is soft no tenderness normal bowel sounds and neuro examination is essentially unchanged Objective Data Vital Signs Vital Signs: Vital Signs - 24 hr 04/07/20 20:48 04/08/20 05:03 04/08/20 14:00 Temperature 36.2 C L 36.1 C L 36.3 C L Pulse Rate 73 69 76 Respiratory Rate 20 18 18 Blood Pressure 131/76 115/69 128/72 Pulse Oximetry 97 97 99 Intake/Output Intake/Output: Intake & Output 04/05/20 04/06/20 04/07/20 04/08/20 23:59 23:59 23:59 23:59 Intake Total 720 840 720 480 Output Total 1250 1250 1250 Balance -530 -410 -530 480 Meds/Results Medications: Active Medications Generic Name Dose Route Start Last Admin Trade Name Freq PRN Reason Stop Dose Admin Acetaminophen 650 mg 03/31/20 16:42 Acetaminophen 325 Mg Tablet PO Q6H PRN Pain, Mild Aspirin 81 mg 04/01/20 09:00 04/08/20 10:07 Aspirin 81 Mg Chewable Tablet PO 81 mg DAILY PETE Administration Atorvastatin Calcium 40 mg 03/31/20 21:00 04/07/20 20:50 Atorvastatin 40 Mg Tablet PO 40 mg HS PETE Administration Baclofen 10 mg 04/04/20 21:00 04/08/20 10:07 Baclofen 10 Mg Tablet PO 10 mg Q12HR PETE Administration Benzonatate 100 mg 03/31/20 16:42 Benzonatate 100 Mg Capsule PO Q8H PRN Cough Bisacodyl 10 mg 03/31/20 16:42 04/04/20 09:58 Bisacodyl 5 Mg Tablet Ec PO 10 mg Q24H PRN Administration Constipation Clopidogrel Bisulfate 75 mg 04/01/20 09:00 04/08/20 10:07 Clopidogrel Bisulfate 75 Mg Tablet PO 75 mg DAILY PETE Administration Dicyclomine HCl 20 mg 03/31/20 17:00 04/04/20 09:59 Dicyclomine Hcl 10 Mg Capsule PO 20 mg QID PETE Administration Ezetimibe 10 mg 04/01/20 09:00 04/08/20 10:08 Ezetimibe 10 Mg Tablet PO 10 mg DAILY PETE Administration Lactulose 30 gm 04/04/20 09:48 Lactulose 20 Gm/30 Ml Udc PO DAILY PRN Constipation Magnesium Hydroxide 30 ml 03/31/20 16:42 Magnesium Hydroxide Susp 30 Ml Udc PO Q6H PRN Indigestion Meclizine HCl 25 mg 03/31/20 16:42 Meclizine Hcl 25 Mg Tablet PO Q8H PRN Dizziness Melatonin 5 mg 03/31/20 16:42 Melatonin 5 Mg Tablet PO HS PRN Sleep Pantoprazole Sodium 40 mg 03/31/20 17:00 04/08/20 17:12 Pantoprazole 40 Mg Tablet PO 40 mg BID PETE Administration Polyethylene Glycol 17 gm 04/04/20 21:00 04/07/20 20:49 Polyethylene Glycol 3350 17 Gm Powd.Pack PO 17 gm HS PETE Administration Senna/Docusate Sodium 2 tab 04/02/20 21:00 04/07/20 20:49 Senna/Docusate Sodium Tablet PO 2 tab HS PETE Administration Labs Labs: Laboratory Results - last 24 hr 04/08/20 04/08/20 04:58 04:58 WBC 7.0 RBC 4.06 L Hgb 12.4 Hct 37.7 MCV 92.9 MCH 30.5 MCHC 32.9 RDW 11.7 Plt Count 283 MPV 9.9 Immature Gran % (Auto) 0.4 Neut % (Auto) 61.3 Lymph % (Auto) 27.9 [place] % (Auto) 5.9 Eos % (Auto) 3.6 Baso % (A
[2020-04-08] MEDS: ATORVASTATIN 40 MG TABLET PO (20:03)
[2020-04-08] MEDS: SENNA/DOCUSATE SODIUM TABLET 2 TAB PO (20:03)
[2020-04-08] MEDS: polyethylene glycoL 3350 17 GM POWD.PACK PO (20:03)
[2020-04-08 22:00] VITALS: BP 111/50; PULSE 86; RESP 19; TEMP 36; O2SAT 97
[2020-04-09 06:00] VITALS: BP 126/57; PULSE 67; RESP 19; TEMP 36; O2SAT 98
[2020-04-09] MEDS: CLOPIDOGREL BISULFATE 75 MG TABLET PO (09:06)
[2020-04-09] MEDS: ASPIRIN 81 MG CHEWABLE TABLET PO (09:06)
[2020-04-09] MEDS: EZETIMIBE 10 MG TABLET PO (09:06)
[2020-04-09] MEDS: PANTOPRAZOLE 40 MG TABLET PO ×2 (09:06→17:55)
[2020-04-09] MEDS: BACLOFEN 10 MG TABLET PO ×2 (09:06→20:39)
[2020-04-09 14:00] VITALS: BP 112/62; PULSE 78; RESP 16; TEMP 36.9; O2SAT 96
--- NOTE | 2020-04-09 17:40 | WPDNEURORHBP ---
Subjective Date/time seen: 04/09/20 17:40 80 years old right-handed female with stroke involving the left side of her body, involved in therapy Review of Systems Review of Systems: All systems reviewed & are unremarkable except as noted in HPI and below Functional Status Ambulation Ability Ability to Ambulate 10 Feet: Moderate Assistance X 1 Ability to Ambulate 50 Feet With 2 Turns: Moderate Assistance X 1 Ability to Ambulate 150 Feet: Moderate Assistance X 1 Ambulation Assistive Devices: Walker, Wheeled Transfers Ability Ability to Transfer In/Out of Chair: Moderate Assistance X 1 Exam Narrative: Exam Narrative: she is awake alert , speech not dysphasic not dysarthric, heart regular with no murmur ,lungs clear with no rhonchi or crepitation ,abdomen is soft nontender, neuro examination unchanged Objective Data Vital Signs Vital Signs: Vital Signs - 24 hr 04/08/20 22:00 04/09/20 06:00 04/09/20 14:00 Temperature 36.0 C L 36.0 C L 36.9 C Pulse Rate 86 67 78 Respiratory Rate 19 19 16 Blood Pressure 111/50 L 126/57 L 112/62 Pulse Oximetry 97 98 96 Intake/Output Intake/Output: Intake & Output 04/06/20 04/07/20 04/08/20 04/09/20 23:59 23:59 23:59 23:59 Intake Total 840 720 720 360 Output Total 1250 1250 Balance -410 -530 720 360 Meds/Results Medications: Active Medications Generic Name Dose Route Start Last Admin Trade Name Freq PRN Reason Stop Dose Admin Acetaminophen 650 mg 03/31/20 16:42 Acetaminophen 325 Mg Tablet PO Q6H PRN Pain, Mild Aspirin 81 mg 04/01/20 09:00 04/09/20 09:06 Aspirin 81 Mg Chewable Tablet PO 81 mg DAILY PETE Administration Atorvastatin Calcium 40 mg 03/31/20 21:00 04/08/20 20:03 Atorvastatin 40 Mg Tablet PO 40 mg HS PETE Administration Baclofen 10 mg 04/04/20 21:00 04/09/20 09:06 Baclofen 10 Mg Tablet PO 10 mg Q12HR PETE Administration Benzonatate 100 mg 03/31/20 16:42 Benzonatate 100 Mg Capsule PO Q8H PRN Cough Bisacodyl 10 mg 03/31/20 16:42 04/04/20 09:58 Bisacodyl 5 Mg Tablet Ec PO 10 mg Q24H PRN Administration Constipation Clopidogrel Bisulfate 75 mg 04/01/20 09:00 04/09/20 09:06 Clopidogrel Bisulfate 75 Mg Tablet PO 75 mg DAILY PETE Administration Dicyclomine HCl 20 mg 03/31/20 17:00 04/04/20 09:59 Dicyclomine Hcl 10 Mg Capsule PO 20 mg QID PETE Administration Ezetimibe 10 mg 04/01/20 09:00 04/09/20 09:06 Ezetimibe 10 Mg Tablet PO 10 mg DAILY PETE Administration Lactulose 30 gm 04/04/20 09:48 Lactulose 20 Gm/30 Ml Udc PO DAILY PRN Constipation Magnesium Hydroxide 30 ml 03/31/20 16:42 Magnesium Hydroxide Susp 30 Ml Udc PO Q6H PRN Indigestion Meclizine HCl 25 mg 03/31/20 16:42 Meclizine Hcl 25 Mg Tablet PO Q8H PRN Dizziness Melatonin 5 mg 03/31/20 16:42 Melatonin 5 Mg Tablet PO HS PRN Sleep Pantoprazole Sodium 40 mg 03/31/20 17:00 04/09/20 09:06 Pantoprazole 40 Mg Tablet PO 40 mg BID PETE Administration Polyethylene Glycol 17 gm 04/04/20 21:00 04/08/20 20:03 Polyethylene Glycol 3350 17 Gm Powd.Pack PO 17 gm HS PETE Administration Senna/Docusate Sodium 2 tab 04/02/20 21:00 04/08/20 20:03 Senna/Docusate Sodium Tablet PO 2 tab HS PETE Administration Progress Note: A&P Assessment and Plan (1) Hyperlipidemia: Code(s): E78.5 - Hyperlipidemia, unspecified Status: Acute (2) Hypertension: Code(s): I10 - Essential (primary) hypertension Status: Acute (3) Nystagmus: Code(s): H55.00 - Unspecified nystagmus Status: Acute (4) Diplopia: Code(s): H53.2 - Diplopia Status: Acute (5) Ataxia: Code(s): R27.0 - Ataxia, unspecified Status: Acute (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
[2020-04-09] MEDS: ATORVASTATIN 40 MG TABLET PO (20:40)
[2020-04-09] MEDS: SENNA/DOCUSATE SODIUM TABLET 2 TAB PO (20:40)
[2020-04-09] MEDS: polyethylene glycoL 3350 17 GM POWD.PACK PO (20:40)
[2020-04-09 22:00] VITALS: BP 119/63; PULSE 80; RESP 17; TEMP 36.4; O2SAT 100
[2020-04-10 06:00] VITALS: BP 130/61; PULSE 67; RESP 16; TEMP 36; O2SAT 94
[2020-04-10] MEDS: ASPIRIN 81 MG CHEWABLE TABLET PO (09:40)
[2020-04-10] MEDS: CLOPIDOGREL BISULFATE 75 MG TABLET PO (09:40)
[2020-04-10] MEDS: PANTOPRAZOLE 40 MG TABLET PO ×2 (09:41→17:32)
[2020-04-10] MEDS: BACLOFEN 10 MG TABLET PO ×2 (09:41→20:33)
[2020-04-10] MEDS: EZETIMIBE 10 MG TABLET PO (09:41)
[2020-04-10 14:00] VITALS: BP 137/59; PULSE 69; RESP 18; TEMP 36.3; O2SAT 97
--- NOTE | 2020-04-10 16:08 | PCPTNOTE ---
Rose Owens PTA completed an inpatient rehab wheelchair evaluation on [facility] on 04/10/2020. The patient is unable to safely and independently ambulate household distances due to their current impairments. Their diagnosis is CVA and their impairments include decreased strength, decreased endurance, decreased range of motion, decreased balance, and lower extremity weakness. Chikis's weight bearing status is weight-bearing as tolerated on the bilateral lower legs. The patient demonstrates significant functional mobility limitations that impair their ability to participate in mobility-related activities of daily living (MRADLs), including toileting, feeding, dressing, grooming, and bathing in the customary locations in the home. These limitations cannot be sufficiently resolved by the use of an appropriately fitted cane or walker. It is recommended that the patient utilize a wheelchair for functional mobility within the home in order to facilitate optimal safety, independence and participation in all MRADL's and adequately access their home environment on a regular basis. The patient's home provides adequate access between rooms, maneuvering space, and surfaces to accommodate the recommended wheelchair. The use of a wheelchair for functional mobility is strongly recommended and the patient is receptive to using the wheelchair. The use of this wheelchair will significantly improve the patient's ability to participate in MRADLS and the patient will use it on a regular basis in the home. This will facilitate optimal safety, independence, and participation. The patient has demonstrated sufficient physical and mental capabilities needed to safely propel a manual wheelchair that is provided in the home during a typical day. Recommended Wheelchair Frame: standard Recommended Wheelchair Size:18x18 Recommended Wheelchair Cushion: standard Wheelchair Leg Recommendations: swing away leg rest -Anti-tippers are recommended due to patient demonstrating increased risk for falls. They would benefit from anti-tippers with added safety and stabilization. Rose Owens PTA __04/10/2020 Evaluating Therapist Date I agree with and certify that the above recommendation is medically necessary. Referring Physician Date I agree with and certify that the above recommendation is medically necessary. Referring Physician Date
[2020-04-10 20:00] VITALS: O2SAT 97
[2020-04-10] MEDS: SENNA/DOCUSATE SODIUM TABLET 2 TAB PO (20:33)
[2020-04-10] MEDS: ATORVASTATIN 40 MG TABLET PO (20:33)
[2020-04-10] MEDS: polyethylene glycoL 3350 17 GM POWD.PACK PO (20:33)
[2020-04-10 22:00] VITALS: BP 117/64; PULSE 72; RESP 20; TEMP 36.1; O2SAT 97
[2020-04-11 05:45] VITALS: BP 120/59; PULSE 63; RESP 20; TEMP 35.8; O2SAT 96
[2020-04-11] MEDS: EZETIMIBE 10 MG TABLET PO (09:18)
[2020-04-11] MEDS: CLOPIDOGREL BISULFATE 75 MG TABLET PO (09:18)
[2020-04-11] MEDS: ASPIRIN 81 MG CHEWABLE TABLET PO (09:18)
[2020-04-11] MEDS: PANTOPRAZOLE 40 MG TABLET PO ×2 (09:18→16:33)
[2020-04-11] MEDS: BACLOFEN 10 MG TABLET PO ×2 (09:18→20:46)
--- NOTE | 2020-04-11 13:10 | WPDNEURORHBP ---
Subjective Date/time seen: 04/11/20 13:10 80 years old lady with clinical presentation of left hemiparesis along with hypertension and documented Median inferior left cerebellar hemispheric infarct with involvement of the left superior carmina and also 50 to 79% stenosis in the left ICA. She is involved in the physical therapy on a regular basis at present she is ambulating up to 150ft with moderate assistance of 1 using the wheel walker and able to transfer in and out of chair with moderate assistance of 1 Review of Systems Review of Systems: All systems reviewed & are unremarkable except as noted in HPI and below Functional Status Ambulation Ability Ability to Ambulate 10 Feet: Minimum Assistance X 1 Ability to Ambulate 50 Feet With 2 Turns: Minimum Assistance X 1 Ability to Ambulate 150 Feet: Minimum Assistance X 1 Ambulation Assistive Devices: Walker, Wheeled Transfers Ability Ability to Transfer In/Out of Chair: Minimum Assistance X 1 Exam Narrative: Exam Narrative: examination reveals her to be awake alert with non dysphasic non dysarthric speech neck supple heart regular with no murmur lungs clear with no rhonchi or crepitation abdomen is soft nontender with normal bowel sounds and neuro exam unchanged Objective Data Vital Signs Vital Signs: Vital Signs - 24 hr 04/10/20 14:00 04/10/20 20:00 04/10/20 22:00 Temperature 36.3 C L 36.1 C L Pulse Rate 69 72 Respiratory Rate 18 20 Blood Pressure 137/59 L 117/64 Pulse Oximetry 97 97 97 04/11/20 05:45 Temperature 35.8 C L Pulse Rate 63 Respiratory Rate 20 Blood Pressure 120/59 L Pulse Oximetry 96 Intake/Output Intake/Output: Intake & Output 04/08/20 04/09/20 04/10/20 04/11/20 23:59 23:59 23:59 23:59 Intake Total 720 600 600 240 Output Total 1250 Balance 720 600 -650 240 Meds/Results Medications: Active Medications Generic Name Dose Route Start Last Admin Trade Name Freq PRN Reason Stop Dose Admin Acetaminophen 650 mg 03/31/20 16:42 Acetaminophen 325 Mg Tablet PO Q6H PRN Pain, Mild Aspirin 81 mg 04/01/20 09:00 04/11/20 09:18 Aspirin 81 Mg Chewable Tablet PO 81 mg DAILY PETE Administration Atorvastatin Calcium 40 mg 03/31/20 21:00 04/10/20 20:33 Atorvastatin 40 Mg Tablet PO 40 mg HS PETE Administration Baclofen 10 mg 04/04/20 21:00 04/11/20 09:18 Baclofen 10 Mg Tablet PO 10 mg Q12HR PETE Administration Benzonatate 100 mg 03/31/20 16:42 Benzonatate 100 Mg Capsule PO Q8H PRN Cough Bisacodyl 10 mg 03/31/20 16:42 04/04/20 09:58 Bisacodyl 5 Mg Tablet Ec PO 10 mg Q24H PRN Administration Constipation Clopidogrel Bisulfate 75 mg 04/01/20 09:00 04/11/20 09:18 Clopidogrel Bisulfate 75 Mg Tablet PO 75 mg DAILY PETE Administration Dicyclomine HCl 20 mg 03/31/20 17:00 04/04/20 09:59 Dicyclomine Hcl 10 Mg Capsule PO 20 mg QID PETE Administration Ezetimibe 10 mg 04/01/20 09:00 04/11/20 09:18 Ezetimibe 10 Mg Tablet PO 10 mg DAILY PETE Administration Lactulose 30 gm 04/04/20 09:48 Lactulose 20 Gm/30 Ml Udc PO DAILY PRN Constipation Magnesium Hydroxide 30 ml 03/31/20 16:42 Magnesium Hydroxide Susp 30 Ml Udc PO Q6H PRN Indigestion Meclizine HCl 25 mg 03/31/20 16:42 Meclizine Hcl 25 Mg Tablet PO Q8H PRN Dizziness Melatonin 5 mg 03/31/20 16:42 Melatonin 5 Mg Tablet PO HS PRN Sleep Pantoprazole Sodium 40 mg 03/31/20 17:00 04/11/20 09:18 Pantoprazole 40 Mg Tablet PO 40 mg BID PETE Administration Polyethylene Glycol 17 gm 04/04/20 21:00 04/10/20 20:33 Polyethylene Glycol 3350 17 Gm Powd.Pack PO 17 gm HS PETE Administration Senna/Docusate Sodium 2 tab 04/02/20 21:00 04/10/20 20:33 Senna/Docusate Sodium Tablet PO 2 tab HS PETE Administration Progress Note: A&P Assessment and Plan (1) Hyperlipidemia: Code(s): E78.5 - Hyperlipidemia, u
[2020-04-11 14:00] VITALS: BP 99/61; PULSE 84; RESP 18; TEMP 36.3; O2SAT 97
[2020-04-11 20:00] VITALS: PULSE 73; RESP 16; O2SAT 97
[2020-04-11] MEDS: SENNA/DOCUSATE SODIUM TABLET 2 TAB PO (20:46)
[2020-04-11] MEDS: ATORVASTATIN 40 MG TABLET PO (20:46)
[2020-04-11] MEDS: polyethylene glycoL 3350 17 GM POWD.PACK PO (20:47)
[2020-04-11 21:28] VITALS: BP 111/68; PULSE 73; RESP 16; TEMP 36.6; O2SAT 97
[2020-04-12 06:00] VITALS: BP 134/67; PULSE 69; RESP 16; TEMP 36.5; O2SAT 97
[2020-04-12] MEDS: CLOPIDOGREL BISULFATE 75 MG TABLET PO (09:58)
[2020-04-12] MEDS: ASPIRIN 81 MG CHEWABLE TABLET PO (09:59)
[2020-04-12] MEDS: PANTOPRAZOLE 40 MG TABLET PO ×2 (09:59→17:02)
[2020-04-12] MEDS: BACLOFEN 10 MG TABLET PO ×2 (09:59→20:23)
[2020-04-12 10:00] VITALS: PULSE 70; RESP 16; O2SAT 97
[2020-04-12] MEDS: EZETIMIBE 10 MG TABLET PO (10:00)
[2020-04-12 14:00] VITALS: BP 126/72; PULSE 82; RESP 18; TEMP 36.4; O2SAT 97
[2020-04-12 20:00] VITALS: PULSE 94; RESP 18; O2SAT 97
[2020-04-12] MEDS: polyethylene glycoL 3350 17 GM POWD.PACK PO (20:23)
[2020-04-12] MEDS: ATORVASTATIN 40 MG TABLET PO (20:23)
[2020-04-12] MEDS: SENNA/DOCUSATE SODIUM TABLET 2 TAB PO (20:24)
[2020-04-12 22:00] VITALS: BP 134/78; PULSE 94; RESP 18; TEMP 36.3; O2SAT 97
--- NOTE | 2020-04-13 01:09 | PC.NURSE ---
Daylight Savings Time For Daylight Savings Time Ending in the Fall - Clocks are moved back. For Daylight Savings Time Beginning in the Spring - Clocks are moved ahead. For [facility], the time of change occurs at 0200 hrs. Time is taken from the fine dining server. This entry on the patient's chart recognizes the change in time reflected during documentation. Example: 2 entries for vital signs may be charted for 0200 hrs.
[2020-04-13 06:00] VITALS: BP 134/68; PULSE 63; RESP 16; TEMP 36.1; O2SAT 96
[2020-04-13] MEDS: ASPIRIN 81 MG CHEWABLE TABLET PO (09:00)
[2020-04-13] MEDS: BACLOFEN 10 MG TABLET PO ×2 (09:01→20:34)
[2020-04-13] MEDS: EZETIMIBE 10 MG TABLET PO (09:01)
[2020-04-13] MEDS: CLOPIDOGREL BISULFATE 75 MG TABLET PO (09:01)
[2020-04-13] MEDS: PANTOPRAZOLE 40 MG TABLET PO ×2 (09:01→17:14)
--- NOTE | 2020-04-13 11:28 | WPDNEURORHBP ---
Subjective Date/time seen: 04/13/20 11:28 80 years old lady with left hemiparesis along with 1. Hypertension 2. Documented left cerebellar hemispheric infarct involving the left superior carmina and 50 to 79% stenosis in the left ICA. Has been involved in physical therapy and occupational therapy. At present she is able to ambulate up to 150ft with minimum assistance of 1 using the wheeled walker and also able to transfer in and out of chair with minimum assistance of 1 Review of Systems Review of Systems: All systems reviewed & are unremarkable except as noted in HPI and below Functional Status Ambulation Ability Ability to Ambulate 10 Feet: Minimum Assistance X 1 Ability to Ambulate 50 Feet With 2 Turns: Moderate Assistance X 1 Ability to Ambulate 150 Feet: Minimum Assistance X 1 Ambulation Assistive Devices: Walker, Wheeled Transfers Ability Ability to Transfer In/Out of Chair: Minimum Assistance X 1 Exam Narrative: Exam Narrative: on examination she is awake alert, his speech nor dysphasic not dysarthric, ear nose throat examination normal, neck is supple, mucous membranes are moist, heart regular with no murmur, lungs clear with no rhonchi or crepitation, abdomen is soft with normal bowel sounds, skin normal neuro examination unchanged Objective Data Vital Signs Vital Signs: Vital Signs - 24 hr 04/12/20 14:00 04/12/20 20:00 04/12/20 22:00 Temperature 36.4 C 36.3 C L Pulse Rate 82 94 94 Respiratory Rate 18 18 18 Blood Pressure 126/72 134/78 Pulse Oximetry 97 97 97 04/13/20 06:00 Temperature 36.1 C L Pulse Rate 63 Respiratory Rate 16 Blood Pressure 134/68 Pulse Oximetry 96 Intake/Output Intake/Output: Intake & Output 04/10/20 04/11/20 04/12/20 04/13/20 23:59 23:59 23:59 22:59 Intake Total 600 720 840 240 Balance 600 720 840 240 Meds/Results Medications: Active Medications Generic Name Dose Route Start Last Admin Trade Name Freq PRN Reason Stop Dose Admin Acetaminophen 650 mg 03/31/20 16:42 Acetaminophen 325 Mg Tablet PO Q6H PRN Pain, Mild Aspirin 81 mg 04/01/20 09:00 04/13/20 09:00 Aspirin 81 Mg Chewable Tablet PO 81 mg DAILY PETE Administration Atorvastatin Calcium 40 mg 03/31/20 21:00 04/12/20 20:23 Atorvastatin 40 Mg Tablet PO 40 mg HS PETE Administration Baclofen 10 mg 04/04/20 21:00 04/13/20 09:01 Baclofen 10 Mg Tablet PO 10 mg Q12HR PETE Administration Benzonatate 100 mg 03/31/20 16:42 Benzonatate 100 Mg Capsule PO Q8H PRN Cough Bisacodyl 10 mg 03/31/20 16:42 04/04/20 09:58 Bisacodyl 5 Mg Tablet Ec PO 10 mg Q24H PRN Administration Constipation Clopidogrel Bisulfate 75 mg 04/01/20 09:00 04/13/20 09:01 Clopidogrel Bisulfate 75 Mg Tablet PO 75 mg DAILY PETE Administration Dicyclomine HCl 20 mg 03/31/20 17:00 04/04/20 09:59 Dicyclomine Hcl 10 Mg Capsule PO 20 mg QID PETE Administration Ezetimibe 10 mg 04/01/20 09:00 04/13/20 09:01 Ezetimibe 10 Mg Tablet PO 10 mg DAILY PETE Administration Lactulose 30 gm 04/04/20 09:48 Lactulose 20 Gm/30 Ml Udc PO DAILY PRN Constipation Magnesium Hydroxide 30 ml 03/31/20 16:42 Magnesium Hydroxide Susp 30 Ml Udc PO Q6H PRN Indigestion Meclizine HCl 25 mg 03/31/20 16:42 Meclizine Hcl 25 Mg Tablet PO Q8H PRN Dizziness Melatonin 5 mg 03/31/20 16:42 Melatonin 5 Mg Tablet PO HS PRN Sleep Pantoprazole Sodium 40 mg 03/31/20 17:00 04/13/20 09:01 Pantoprazole 40 Mg Tablet PO 40 mg BID PETE Administration Polyethylene Glycol 17 gm 04/04/20 21:00 04/12/20 20:23 Polyethylene Glycol 3350 17 Gm Powd.Pack PO 17 gm HS PETE Administration Senna/Docusate Sodium 2 tab 04/02/20 21:00 04/12/20 20:24 Senna/Docusate Sodium Tablet PO 2 tab HS PETE Administration Progress Note: A&P Assessment and Plan (1) Hyperlipidemia: Code(s): E78.5 - Hyperlip
[2020-04-13 14:00] VITALS: BP 110/55; PULSE 90; RESP 20; TEMP 36.6; O2SAT 97
[2020-04-13] MEDS: ATORVASTATIN 40 MG TABLET PO (20:34)
[2020-04-13] MEDS: SENNA/DOCUSATE SODIUM TABLET 2 TAB PO (20:35)
[2020-04-13] MEDS: polyethylene glycoL 3350 17 GM POWD.PACK PO (20:38)
[2020-04-13 22:00] VITALS: BP 127/68; PULSE 72; RESP 18; TEMP 36.1; O2SAT 99
[2020-04-14 06:00] VITALS: BP 129/65; PULSE 63; RESP 16; TEMP 36.1; O2SAT 99
[2020-04-14] MEDS: BACLOFEN 10 MG TABLET PO (08:49)
[2020-04-14] MEDS: PANTOPRAZOLE 40 MG TABLET PO ×2 (08:49→18:14)
[2020-04-14] MEDS: ASPIRIN 81 MG CHEWABLE TABLET PO (08:49)
[2020-04-14] MEDS: CLOPIDOGREL BISULFATE 75 MG TABLET PO (08:49)
[2020-04-14] MEDS: EZETIMIBE 10 MG TABLET PO (08:49)
[2020-04-14 10:30] VITALS: BP 116/77; PULSE 89; O2SAT 98
[2020-04-14 14:00] VITALS: BP 111/59; PULSE 90; RESP 16; TEMP 36.1; O2SAT 99
[2020-04-14] MEDS: DICYCLOMINE HCL 10 MG CAPSULE PO (18:14)
[2020-04-14 20:50] VITALS: PULSE 86; RESP 18; O2SAT 96
[2020-04-14] MEDS: ATORVASTATIN 40 MG TABLET PO (20:50)
[2020-04-14] MEDS: SENNA/DOCUSATE SODIUM TABLET 2 TAB PO (20:50)
[2020-04-14] MEDS: polyethylene glycoL 3350 17 GM POWD.PACK PO (20:50)
[2020-04-14 21:00] VITALS: BP 100/58; PULSE 86; RESP 18; TEMP 36.1; O2SAT 96
[2020-04-15 05:41] VITALS: BP 120/63; PULSE 76; RESP 18; TEMP 36.1; O2SAT 97
[2020-04-15 05:53] LABS: Basophils Absolute Auto 0.1 K/mm3 (0.0-0.1); Eosinophils Absolute Auto 0.2 K/mm3 (0-0.3); Eosinophils Percent Auto 3.8 % (0-4.4); Hematocrit 37.7 % (37.0-47.0); Hemoglobin 12.2 g/dL (12.0-15.0); Immature Granulocyte Absolute 0.03 K/mm3 (0.00-0.031); Immature Granulocyte Percent A 0.5 % (0-0.5); Lymphocytes Absolute Auto 2.16 K/mm3 (0.9-3.2); Lymphocytes Percent Auto 35.3 % (18.3-44.2); Mean Corpuscular HGB Conc 32.4 g/dl (32-36); Mean Corpuscular Hemoglobin 30.9 pg (26-34); Mean Corpuscular Volume 95.4 fl (80-100); Mean Platelet Volume 9.9 fl (7.4-10.4); Monocytes Absolute Auto 0.4 K/mm3 (0.1-0.6); Monocytes Percent Auto 5.7 % (2.6-8.5); Neutrophils Absolute Auto 3.3 K/mm3 (1.3-6.7); Neutrophils Percent Auto 53.7 % (45.5-73.1); Platelet Count Result 257 k/mm3 (150-375); Red Blood Count 3.95 M/mm3 (4.2-5.4); Red Cell Distribution Width 11.8 % (11.5-14.5); White Blood Count 6.1 K/mm3 (4.5-10.0)
[2020-04-15 06:08] LABS: Anion Gap 4 mmol/L (8-16); Blood Urea Nitrogen 20 mg/dL (7-17); Calcium 9.4 mg/dL (8.4-10.2); Carbon Dioxide 34 mmol/L (22-30); Chloride 103 mmol/L (98-107); Estimated CRCL calculation 42 ml/min; Estimated Glomerular Filt Rate > 60; Glucose 96 mg/dL (65-105); Potassium 4.2 mmol/L (3.4-5.0); Sodium 141 mmol/L (137-145)
[2020-04-15] MEDS: ASPIRIN 81 MG CHEWABLE TABLET PO (11:50)
[2020-04-15] MEDS: DICYCLOMINE HCL 10 MG CAPSULE PO ×2 (11:51→17:14)
[2020-04-15] MEDS: EZETIMIBE 10 MG TABLET PO (11:51)
[2020-04-15] MEDS: PANTOPRAZOLE 40 MG TABLET PO ×2 (11:51→17:14)
[2020-04-15] MEDS: CLOPIDOGREL BISULFATE 75 MG TABLET PO (11:51)
--- NOTE | 2020-04-15 13:32 | PCDIET ---
Nutrition Follow-Up Complete: Nutrition Diagnosis: Food and nutrition related knowledge deficit related to stroke prevention, as evidenced by occurrence of CVA and pt interview. Nutrition Goal: Pt. will familiarize herself with heart healthy diet approach, and understand ways to modify her diet accordingly pre-discharge. Goal met. Patient consuming around 75% of meals, on average, on heart healthy diet. c/o low appetite, but eats because people tell me I have to . Encouragement provided. Patient declines oral supplement at this time. Recommend continuing heart healthy diet. Last recorded weight is 63.3 kg. Recommend obtaining new weight. Bowel Motility: Documented BM on 04/14/20. Labs Reviewed: BUN (20) Meds Noted: Lipitor, Protonix, Miralax, Senna Additional Notes: Maceration to buttocks documented. Will continue to monitor with same goal. Nutrition Monitoring and Evaluation: Follow up in 7 days.
[2020-04-15 14:00] VITALS: BP 114/57; PULSE 79; RESP 16; TEMP 36.2; O2SAT 97
[2020-04-15 20:00] VITALS: PULSE 76; RESP 18; O2SAT 97
[2020-04-15] MEDS: SENNA/DOCUSATE SODIUM TABLET 2 TAB PO (21:32)
[2020-04-15] MEDS: ATORVASTATIN 40 MG TABLET PO (21:33)
[2020-04-15] MEDS: polyethylene glycoL 3350 17 GM POWD.PACK PO (21:33)
[2020-04-15 22:00] VITALS: BP 120/70; PULSE 76; RESP 18; TEMP 36.4; O2SAT 97
[2020-04-16 06:00] VITALS: BP 138/61; PULSE 77; RESP 18; TEMP 36.6; O2SAT 100
[2020-04-16] MEDS: ASPIRIN 81 MG CHEWABLE TABLET PO (08:41)
[2020-04-16] MEDS: CLOPIDOGREL BISULFATE 75 MG TABLET PO (08:41)
[2020-04-16] MEDS: DICYCLOMINE HCL 10 MG CAPSULE PO ×2 (08:41→17:11)
[2020-04-16] MEDS: PANTOPRAZOLE 40 MG TABLET PO ×2 (08:41→17:10)
[2020-04-16] MEDS: EZETIMIBE 10 MG TABLET PO (08:41)
--- NOTE | 2020-04-16 12:06 | WPDNEURORHBP ---
Subjective Date/time seen: 04/16/20 12:06 80 years old lady with left hemiparesis in addition to multiple comorbid condition has been involved in the physical therapy at this particular time she is able to ambulate up to 150ft with minimum assistance of 1 using the wheeled walker and is able to transfer in and out of chair with minimum assistance of 1 Review of Systems Review of Systems: All systems reviewed & are unremarkable except as noted in HPI and below Functional Status Ambulation Ability Ability to Ambulate 10 Feet: Minimum Assistance X 1 Ability to Ambulate 50 Feet With 2 Turns: Contact Guard Ability to Ambulate 150 Feet: Contact Guard Ambulation Assistive Devices: Walker, Wheeled Transfers Ability Ability to Transfer In/Out of Chair: Contact Guard Exam Narrative: Exam Narrative: remains afebrile on examination awake alert cooperative in no obvious acute distress her ear nose throat examination normal neck supple heart regular lungs clear abdomen is soft nontender normal bowel sounds neuro examination unchanged Objective Data Vital Signs Vital Signs: Vital Signs - 24 hr 04/15/20 14:00 04/15/20 20:00 04/15/20 22:00 Temperature 36.2 C L 36.4 C Pulse Rate 79 76 76 Respiratory Rate 16 18 18 Blood Pressure 114/57 L 120/70 Pulse Oximetry 97 97 97 04/16/20 06:00 Temperature 36.6 C Pulse Rate 77 Respiratory Rate 18 Blood Pressure 138/61 Pulse Oximetry 100 Intake/Output Intake/Output: Intake & Output 04/13/20 04/14/20 04/15/20 04/16/20 23:59 23:59 23:59 23:59 Intake Total 960 720 240 Balance 960 720 240 Meds/Results Medications: Active Medications Generic Name Dose Route Start Last Admin Trade Name Freq PRN Reason Stop Dose Admin Acetaminophen 650 mg 03/31/20 16:42 Acetaminophen 325 Mg Tablet PO Q6H PRN Pain, Mild Aspirin 81 mg 04/01/20 09:00 04/16/20 08:41 Aspirin 81 Mg Chewable Tablet PO 81 mg DAILY PETE Administration Atorvastatin Calcium 40 mg 03/31/20 21:00 04/15/20 21:33 Atorvastatin 40 Mg Tablet PO 40 mg HS PETE Administration Benzonatate 100 mg 03/31/20 16:42 Benzonatate 100 Mg Capsule PO Q8H PRN Cough Bisacodyl 10 mg 03/31/20 16:42 04/04/20 09:58 Bisacodyl 5 Mg Tablet Ec PO 10 mg Q24H PRN Administration Constipation Clopidogrel Bisulfate 75 mg 04/01/20 09:00 04/16/20 08:41 Clopidogrel Bisulfate 75 Mg Tablet PO 75 mg DAILY PETE Administration Dicyclomine HCl 10 mg 04/14/20 17:00 04/16/20 08:41 Dicyclomine Hcl 10 Mg Capsule PO 10 mg BID PETE Administration Ezetimibe 10 mg 04/01/20 09:00 04/16/20 08:41 Ezetimibe 10 Mg Tablet PO 10 mg DAILY PETE Administration Lactulose 30 gm 04/04/20 09:48 Lactulose 20 Gm/30 Ml Udc PO DAILY PRN Constipation Magnesium Hydroxide 30 ml 03/31/20 16:42 Magnesium Hydroxide Susp 30 Ml Udc PO Q6H PRN Indigestion Meclizine HCl 25 mg 03/31/20 16:42 Meclizine Hcl 25 Mg Tablet PO Q8H PRN Dizziness Melatonin 5 mg 03/31/20 16:42 Melatonin 5 Mg Tablet PO HS PRN Sleep Pantoprazole Sodium 40 mg 03/31/20 17:00 04/16/20 08:41 Pantoprazole 40 Mg Tablet PO 40 mg BID PETE Administration Polyethylene Glycol 17 gm 04/04/20 21:00 04/15/20 21:33 Polyethylene Glycol 3350 17 Gm Powd.Pack PO 17 gm HS PETE Administration Senna/Docusate Sodium 2 tab 04/02/20 21:00 04/15/20 21:32 Senna/Docusate Sodium Tablet PO 2 tab HS PETE Administration Progress Note: A&P Assessment and Plan (1) Hyperlipidemia: Code(s): E78.5 - Hyperlipidemia, unspecified Status: Acute (2) Nystagmus: Code(s): H55.00 - Unspecified nystagmus Status: Acute (3) Diplopia: Code(s): H53.2 - Diplopia Status: Acute (4) Ataxia: Code(s): R27.0 - Ataxia, unspecified Status: Acute (5) Posterior circulation stroke: Code(s): I63.50 - Cereb
[2020-04-16 14:00] VITALS: BP 109/66; PULSE 85; RESP 18; TEMP 36.1; O2SAT 99
[2020-04-16] MEDS: SENNA/DOCUSATE SODIUM TABLET 2 TAB PO (20:16)
[2020-04-16] MEDS: polyethylene glycoL 3350 17 GM POWD.PACK PO (20:16)
[2020-04-16] MEDS: ATORVASTATIN 40 MG TABLET PO (20:17)
[2020-04-16 22:00] VITALS: BP 105/57; PULSE 74; RESP 17; TEMP 36.1; O2SAT 96
[2020-04-17 05:50] VITALS: BP 124/70; PULSE 71; RESP 17; TEMP 36.3; O2SAT 95
[2020-04-17] MEDS: ASPIRIN 81 MG CHEWABLE TABLET PO (08:29)
[2020-04-17] MEDS: DICYCLOMINE HCL 10 MG CAPSULE PO ×2 (08:29→17:27)
[2020-04-17] MEDS: EZETIMIBE 10 MG TABLET PO (08:29)
[2020-04-17] MEDS: CLOPIDOGREL BISULFATE 75 MG TABLET PO (08:29)
[2020-04-17] MEDS: PANTOPRAZOLE 40 MG TABLET PO ×2 (08:29→17:28)
--- NOTE | 2020-04-17 11:13 | WPDNEURORHBP ---
Subjective Date/time seen: 04/17/20 11:13 80 years old lady with left hemiparesis in addition to multiple comorbid conditions has been involved in the physical therapy and occupational therapy she is ambulating up to 150ft using a wheeled walker and able to transfer in and out of chair using a contact guard on today's visit she has no specific complaints except that at times she feels like floating sensation Review of Systems Review of Systems: All systems reviewed & are unremarkable except as noted in HPI and below Functional Status Ambulation Ability Ability to Ambulate 10 Feet: Minimum Assistance X 1 Ability to Ambulate 50 Feet With 2 Turns: Contact Guard Ability to Ambulate 150 Feet: Contact Guard Ambulation Assistive Devices: Walker, Wheeled Transfers Ability Ability to Transfer In/Out of Chair: Contact Guard Exam Narrative: Exam Narrative: on examination she is awake alert cooperative his speech nor dysphasic no dysarthric neck is supple no cervical bruits with no murmur lungs clear with no rhonchi or crepitation abdomen is soft with normal bowel sounds nontender neurologically she has a slightly positive Romberg's but otherwise neuro examination unchanged there is no evidence of nystagmus Objective Data Vital Signs Vital Signs: Vital Signs - 24 hr 04/16/20 14:00 04/16/20 22:00 04/17/20 05:50 Temperature 36.1 C L 36.1 C L 36.3 C L Pulse Rate 85 74 71 Respiratory Rate 18 17 17 Blood Pressure 109/66 105/57 L 124/70 Pulse Oximetry 99 96 95 Intake/Output Intake/Output: Intake & Output 04/14/20 04/15/20 04/16/20 04/17/20 23:59 23:59 23:59 23:59 Intake Total 960 720 720 240 Balance 960 720 720 240 Meds/Results Medications: Active Medications Generic Name Dose Route Start Last Admin Trade Name Freq PRN Reason Stop Dose Admin Acetaminophen 650 mg 03/31/20 16:42 Acetaminophen 325 Mg Tablet PO Q6H PRN Pain, Mild Aspirin 81 mg 04/01/20 09:00 04/17/20 08:29 Aspirin 81 Mg Chewable Tablet PO 81 mg DAILY PETE Administration Atorvastatin Calcium 40 mg 03/31/20 21:00 04/16/20 20:17 Atorvastatin 40 Mg Tablet PO 40 mg HS PETE Administration Benzonatate 100 mg 03/31/20 16:42 Benzonatate 100 Mg Capsule PO Q8H PRN Cough Bisacodyl 10 mg 03/31/20 16:42 04/04/20 09:58 Bisacodyl 5 Mg Tablet Ec PO 10 mg Q24H PRN Administration Constipation Clopidogrel Bisulfate 75 mg 04/01/20 09:00 04/17/20 08:29 Clopidogrel Bisulfate 75 Mg Tablet PO 75 mg DAILY PETE Administration Dicyclomine HCl 10 mg 04/14/20 17:00 04/17/20 08:29 Dicyclomine Hcl 10 Mg Capsule PO 10 mg BID PETE Administration Ezetimibe 10 mg 04/01/20 09:00 04/17/20 08:29 Ezetimibe 10 Mg Tablet PO 10 mg DAILY PETE Administration Lactulose 30 gm 04/04/20 09:48 Lactulose 20 Gm/30 Ml Udc PO DAILY PRN Constipation Magnesium Hydroxide 30 ml 03/31/20 16:42 Magnesium Hydroxide Susp 30 Ml Udc PO Q6H PRN Indigestion Meclizine HCl 25 mg 03/31/20 16:42 Meclizine Hcl 25 Mg Tablet PO Q8H PRN Dizziness Melatonin 5 mg 03/31/20 16:42 Melatonin 5 Mg Tablet PO HS PRN Sleep Pantoprazole Sodium 40 mg 03/31/20 17:00 04/17/20 08:29 Pantoprazole 40 Mg Tablet PO 40 mg BID PETE Administration Senna/Docusate Sodium 2 tab 04/17/20 08:00 Senna/Docusate Sodium Tablet PO HS PRN Constipation Progress Note: A&P Assessment and Plan (1) Hyperlipidemia: Code(s): E78.5 - Hyperlipidemia, unspecified Status: Acute (2) Hypertension: Code(s): I10 - Essential (primary) hypertension Status: Acute (3) Nystagmus: Code(s): H55.00 - Unspecified nystagmus Status: Acute (4) Diplopia: Code(s): H53.2 - Diplopia Status: Acute (5) Ataxia: Code(s): R27.0 - Ataxia, unspecified Status: Acute (6) Posterior circulation stroke: Code(s):
[2020-04-17 14:00] VITALS: BP 99/61; PULSE 92; RESP 16; TEMP 36.5; O2SAT 96
[2020-04-17] MEDS: ATORVASTATIN 40 MG TABLET PO (20:10)
[2020-04-17 22:00] VITALS: BP 114/69; PULSE 72; RESP 16; TEMP 36.3; O2SAT 97
[2020-04-18 06:00] VITALS: BP 125/57; PULSE 66; RESP 16; TEMP 36.2; O2SAT 95
[2020-04-18] MEDS: DICYCLOMINE HCL 10 MG CAPSULE PO ×2 (09:42→16:53)
[2020-04-18] MEDS: PANTOPRAZOLE 40 MG TABLET PO ×2 (09:42→16:53)
[2020-04-18] MEDS: ASPIRIN 81 MG CHEWABLE TABLET PO (09:42)
[2020-04-18] MEDS: CLOPIDOGREL BISULFATE 75 MG TABLET PO (09:42)
[2020-04-18] MEDS: EZETIMIBE 10 MG TABLET PO (09:42)
[2020-04-18 14:00] VITALS: BP 97/58; PULSE 76; RESP 16; TEMP 36.4; O2SAT 96
[2020-04-18] MEDS: ATORVASTATIN 40 MG TABLET PO (19:53)
[2020-04-18 21:03] VITALS: BP 118/65; PULSE 70; RESP 18; TEMP 36.2; O2SAT 96
[2020-04-19 05:10] VITALS: BP 117/57; PULSE 67; RESP 18; TEMP 36.4; O2SAT 96
[2020-04-19] MEDS: EZETIMIBE 10 MG TABLET PO (08:21)
[2020-04-19] MEDS: ASPIRIN 81 MG CHEWABLE TABLET PO (08:21)
[2020-04-19] MEDS: DICYCLOMINE HCL 10 MG CAPSULE PO ×2 (08:21→17:08)
[2020-04-19] MEDS: CLOPIDOGREL BISULFATE 75 MG TABLET PO (08:21)
[2020-04-19] MEDS: PANTOPRAZOLE 40 MG TABLET PO ×2 (08:21→17:08)
--- NOTE | 2020-04-19 12:44 | WPDNEURORHBP ---
Subjective Date/time seen: 04/19/20 12:44 80 years old lady with left hemiparesis in addition to multiple comorbid conditions has been involved in the physical therapy and occupational therapy has no specific complaints Review of Systems Review of Systems: All systems reviewed & are unremarkable except as noted in HPI and below Functional Status Ambulation Ability Ability to Ambulate 10 Feet: Minimum Assistance X 1 Ability to Ambulate 50 Feet With 2 Turns: Minimum Assistance X 1 Ability to Ambulate 150 Feet: Contact Guard Ambulation Assistive Devices: Walker, Wheeled Transfers Ability Ability to Transfer In/Out of Chair: Contact Guard Exam Narrative: Exam Narrative: on examination he is able to ambulate up to 150ft with contact guard using wheeled walker head normocephalic ears nose throat examination normal his speech nor dysphasic heart regular with no murmur lungs clear to auscultation with no rhonchi or crepitation abdomen is soft nontender normal bowel sounds neuro examination unchanged Objective Data Vital Signs Vital Signs: Vital Signs - 24 hr 04/18/20 14:00 04/18/20 21:03 04/19/20 05:10 Temperature 36.4 C 36.2 C L 36.4 C L Pulse Rate 76 70 67 Respiratory Rate 16 18 18 Blood Pressure 97/58 L 118/65 117/57 L Pulse Oximetry 96 96 96 Intake/Output Intake/Output: Intake & Output 04/16/20 04/17/20 04/18/20 04/19/20 23:59 23:59 23:59 23:59 Intake Total 720 720 840 240 Output Total 1250 Balance 720 720 -410 240 Meds/Results Medications: Active Medications Generic Name Dose Route Start Last Admin Trade Name Youngq PRN Reason Stop Dose Admin Acetaminophen 650 mg 03/31/20 16:42 Acetaminophen 325 Mg Tablet PO Q6H PRN Pain, Mild Aspirin 81 mg 04/01/20 09:00 04/19/20 08:21 Aspirin 81 Mg Chewable Tablet PO 81 mg DAILY PETE Administration Atorvastatin Calcium 40 mg 03/31/20 21:00 04/18/20 19:53 Atorvastatin 40 Mg Tablet PO 40 mg HS PETE Administration Benzonatate 100 mg 03/31/20 16:42 Benzonatate 100 Mg Capsule PO Q8H PRN Cough Bisacodyl 10 mg 03/31/20 16:42 04/04/20 09:58 Bisacodyl 5 Mg Tablet Ec PO 10 mg Q24H PRN Administration Constipation Clopidogrel Bisulfate 75 mg 04/01/20 09:00 04/19/20 08:21 Clopidogrel Bisulfate 75 Mg Tablet PO 75 mg DAILY PETE Administration Dicyclomine HCl 10 mg 04/14/20 17:00 04/19/20 08:21 Dicyclomine Hcl 10 Mg Capsule PO 10 mg BID PETE Administration Ezetimibe 10 mg 04/01/20 09:00 04/19/20 08:21 Ezetimibe 10 Mg Tablet PO 10 mg DAILY PETE Administration Lactulose 30 gm 04/04/20 09:48 Lactulose 20 Gm/30 Ml Udc PO DAILY PRN Constipation Magnesium Hydroxide 30 ml 03/31/20 16:42 Magnesium Hydroxide Susp 30 Ml Udc PO Q6H PRN Indigestion Meclizine HCl 25 mg 03/31/20 16:42 Meclizine Hcl 25 Mg Tablet PO Q8H PRN Dizziness Melatonin 5 mg 03/31/20 16:42 Melatonin 5 Mg Tablet PO HS PRN Sleep Pantoprazole Sodium 40 mg 03/31/20 17:00 04/19/20 08:21 Pantoprazole 40 Mg Tablet PO 40 mg BID PETE Administration Senna/Docusate Sodium 2 tab 04/17/20 08:00 Senna/Docusate Sodium Tablet PO HS PRN Constipation Progress Note: A&P Assessment and Plan (1) Hyperlipidemia: Code(s): E78.5 - Hyperlipidemia, unspecified Status: Acute (2) Hypertension: Code(s): I10 - Essential (primary) hypertension Status: Acute (3) Nystagmus: Code(s): H55.00 - Unspecified nystagmus Status: Acute (4) Diplopia: Code(s): H53.2 - Diplopia Status: Acute (5) Ataxia: Code(s): R27.0 - Ataxia, unspecified Status: Acute (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
[2020-04-19 14:00] VITALS: BP 129/65; PULSE 98; RESP 18; TEMP 36.2; O2SAT 98
[2020-04-19 22:00] VITALS: BP 105/60; PULSE 64; RESP 20; TEMP 36.4; O2SAT 96
[2020-04-19] MEDS: ATORVASTATIN 40 MG TABLET PO (22:31)
[2020-04-20 06:00] VITALS: BP 176/62; PULSE 78; RESP 20; TEMP 36.4; O2SAT 96
[2020-04-20] MEDS: EZETIMIBE 10 MG TABLET PO (08:12)
[2020-04-20] MEDS: DICYCLOMINE HCL 10 MG CAPSULE PO ×2 (08:12→16:51)
[2020-04-20] MEDS: ASPIRIN 81 MG CHEWABLE TABLET PO (08:12)
[2020-04-20] MEDS: CLOPIDOGREL BISULFATE 75 MG TABLET PO (08:12)
[2020-04-20] MEDS: PANTOPRAZOLE 40 MG TABLET PO ×2 (08:12→16:51)
[2020-04-20 14:00] VITALS: BP 95/57; PULSE 82; RESP 18; TEMP 36.8; O2SAT 97
[2020-04-20 20:00] VITALS: PULSE 73; RESP 20; O2SAT 98
[2020-04-20] MEDS: ATORVASTATIN 40 MG TABLET PO (20:09)
[2020-04-20 21:37] VITALS: BP 112/66; PULSE 73; RESP 20; TEMP 36.8; O2SAT 98
[2020-04-21 06:00] VITALS: BP 171/78; PULSE 70; RESP 20; TEMP 36.4; O2SAT 98
[2020-04-21] MEDS: DICYCLOMINE HCL 10 MG CAPSULE PO ×2 (08:33→17:16)
[2020-04-21] MEDS: ASPIRIN 81 MG CHEWABLE TABLET PO (08:33)
[2020-04-21] MEDS: CLOPIDOGREL BISULFATE 75 MG TABLET PO (08:33)
[2020-04-21] MEDS: EZETIMIBE 10 MG TABLET PO (08:33)
[2020-04-21] MEDS: PANTOPRAZOLE 40 MG TABLET PO ×2 (08:33→17:16)
[2020-04-21] MEDS: LACTULOSE 20 GM/30 ML UDC 30 GM PO (08:35)
--- NOTE | 2020-04-21 11:00 | WPDNEUROPN ---
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 - Cerebral infarction due to unspecified occlusion or stenosis of unspecified cerebral artery Status: Acute (6) Diplopia: Code(s): H53.2 - Diplopia Status: Acute Additional Plan stable making improvement continued therapy as such Review of Systems Review of Systems: All systems reviewed & are unremarkable except as noted in HPI and below Exam Narrative: Exam Narrative: on examination she is awake alert cooperative in no obvious acute distress his speech nor dysphasic no dysarthric no dysphonic neck is supple with no restriction of the range of motions heart regular with no murmur lungs clear to auscultation with no crepitations or rhonchi abdomen is soft with no organomegaly normal bowel sounds neuro examination is unchanged Objective Data Vital Signs Vital Signs: Vital Signs - 24 hr 04/20/20 14:00 04/20/20 20:00 04/20/20 21:37 Temperature 36.8 C 36.8 C Pulse Rate 82 73 73 Respiratory Rate 18 20 20 Blood Pressure 95/57 L 112/66 Pulse Oximetry 97 98 98 04/21/20 06:00 Temperature 36.4 C L Pulse Rate 70 Respiratory Rate 20 Blood Pressure 171/78 H Pulse Oximetry 98 Intake/Output Intake/Output: Intake & Output 04/18/20 04/19/20 04/20/20 04/21/20 23:59 23:59 23:59 23:59 Intake Total 840 720 840 360 Output Total 1250 1250 Balance -410 -530 840 360 Meds/Results Medications: Active Medications Generic Name Dose Route Start Last Admin Trade Name Freq PRN Reason Stop Dose Admin Acetaminophen 650 mg 03/31/20 16:42 Acetaminophen 325 Mg Tablet PO Q6H PRN Pain, Mild Aspirin 81 mg 04/01/20 09:00 04/21/20 08:33 Aspirin 81 Mg Chewable Tablet PO 81 mg DAILY PETE Administration Atorvastatin Calcium 40 mg 03/31/20 21:00 04/20/20 20:09 Atorvastatin 40 Mg Tablet PO 40 mg HS PETE Administration Benzonatate 100 mg 03/31/20 16:42 Benzonatate 100 Mg Capsule PO Q8H PRN Cough Bisacodyl 10 mg 03/31/20 16:42 04/04/20 09:58 Bisacodyl 5 Mg Tablet Ec PO 10 mg Q24H PRN Administration Constipation Clopidogrel Bisulfate 75 mg 04/01/20 09:00 04/21/20 08:33 Clopidogrel Bisulfate 75 Mg Tablet PO 75 mg DAILY PETE Administration Dicyclomine HCl 10 mg 04/14/20 17:00 04/21/20 08:33 Dicyclomine Hcl 10 Mg Capsule PO 10 mg BID PETE Administration Ezetimibe 10 mg 04/01/20 09:00 04/21/20 08:33 Ezetimibe 10 Mg Tablet PO 10 mg DAILY EPTE Administration Lactulose 30 gm 04/04/20 09:48 04/21/20 08:35 Lactulose 20 Gm/30 Ml Udc PO 30 gm DAILY PRN Administration Constipation Magnesium Hydroxide 30 ml 03/31/20 16:42 Magnesium Hydroxide Susp 30 Ml Udc PO Q6H PRN Indigestion Meclizine HCl 25 mg 03/31/20 16:42 Meclizine Hcl 25 Mg Tablet PO Q8H PRN Dizziness Melatonin 5 mg 03/31/20 16:42 Melatonin 5 Mg Tablet PO HS PRN Sleep Pantoprazole Sodium 40 mg 03/31/20 17:00 04/21/20 08:33 Pantoprazole 40 Mg Tablet PO 40 mg BID PETE Administration Senna/Docusate Sodium 2 tab 04/17/20 08:00 Senna/Docusate Sodium Tablet PO HS PRN Constipation
[2020-04-21 14:00] VITALS: BP 88/59; PULSE 74; RESP 16; TEMP 36.2; O2SAT 99
[2020-04-21 20:00] VITALS: PULSE 81; RESP 18; O2SAT 97
[2020-04-21 20:09] VITALS: BP 138/79; PULSE 81; RESP 18; TEMP 36.3; O2SAT 97
[2020-04-21] MEDS: ATORVASTATIN 40 MG TABLET PO (20:24)
[2020-04-22 05:12] LABS: Basophils Percent Auto 0.7 % (0.2-1.2); Eosinophils Absolute Auto 0.2 K/mm3 (0-0.3); Eosinophils Percent Auto 3.6 % (0-4.4); Hematocrit 35.5 % (37.0-47.0); Hemoglobin 11.8 g/dL (12.0-15.0); Immature Granulocyte Absolute 0.02 K/mm3 (0.00-0.031); Immature Granulocyte Percent A 0.3 % (0-0.5); Lymphocytes Percent Auto 34.6 % (18.3-44.2); Mean Corpuscular HGB Conc 33.2 g/dl (32-36); Mean Corpuscular Hemoglobin 31.1 pg (26-34); Mean Corpuscular Volume 93.7 fl (80-100); Mean Platelet Volume 10.1 fl (7.4-10.4); Monocytes Absolute Auto 0.4 K/mm3 (0.1-0.6); Monocytes Percent Auto 5.8 % (2.6-8.5); Neutrophils Absolute Auto 3.3 K/mm3 (1.3-6.7); Platelet Count Result 229 k/mm3 (150-375); Red Blood Count 3.79 M/mm3 (4.2-5.4); Red Cell Distribution Width 11.9 % (11.5-14.5); White Blood Count 6.1 K/mm3 (4.5-10.0)
[2020-04-22 05:24] VITALS: BP 147/71; PULSE 67; RESP 20; TEMP 36.2; O2SAT 100
[2020-04-22 05:46] LABS: Anion Gap 2 mmol/L (8-16); Blood Urea Nitrogen 12 mg/dL (7-17); Calcium 9.2 mg/dL (8.4-10.2); Carbon Dioxide 31 mmol/L (22-30); Chloride 107 mmol/L (98-107); Estimated CRCL calculation 42 ml/min; Estimated Glomerular Filt Rate > 60; Glucose 88 mg/dL (65-105); Potassium 4.2 mmol/L (3.4-5.0); Sodium 140 mmol/L (137-145)
[2020-04-22] MEDS: EZETIMIBE 10 MG TABLET PO (08:13)
[2020-04-22] MEDS: ASPIRIN 81 MG CHEWABLE TABLET PO (08:13)
[2020-04-22] MEDS: DICYCLOMINE HCL 10 MG CAPSULE PO ×2 (08:13→16:56)
[2020-04-22] MEDS: CLOPIDOGREL BISULFATE 75 MG TABLET PO (08:13)
[2020-04-22] MEDS: PANTOPRAZOLE 40 MG TABLET PO ×2 (08:13→16:56)
--- NOTE | 2020-04-22 11:07 | PCNFU ---
Nutrition Follow-Up Complete: Food and nutrition related knowledge deficit related to stroke prevention, as evidenced by occurrence of CVA and pt interview. Goal: Pt. will familiarize herself with heart healthy diet approach, and understand ways to modify her diet accordingly pre-discharge. Patient has met current goal. No new goal. Pt current nutrition is Regular. Nutrition recommendation:Agree Last recorded weight is 63.3 kg. Bowel Motility:+BM reported 04/20 Labs Reviewed: Hct 35.5,Hgb 11.8 Meds Noted:Lipitor, Protonix,Zetia, Plavix Additional Notes: Nutrition follow up today. Patient is consuming 100% of a regular diet. All education has been done in regards to heart healthy eating. Planning for discharge this week. Monitoring: Patient intake and output; follow up in 7 days.
[2020-04-22 14:00] VITALS: BP 108/58; PULSE 82; RESP 16; TEMP 36.3; O2SAT 100
[2020-04-22 20:30] VITALS: BP 109/64; PULSE 80; RESP 18; TEMP 35.9; O2SAT 100
[2020-04-22] MEDS: ATORVASTATIN 40 MG TABLET PO (20:44)
[2020-04-23 05:20] VITALS: BP 147/73; PULSE 70; RESP 20; TEMP 36.2; O2SAT 96
[2020-04-23] MEDS: DICYCLOMINE HCL 10 MG CAPSULE PO ×2 (09:01→17:34)
[2020-04-23] MEDS: CLOPIDOGREL BISULFATE 75 MG TABLET PO (09:01)
[2020-04-23] MEDS: ASPIRIN 81 MG CHEWABLE TABLET PO (09:01)
[2020-04-23] MEDS: EZETIMIBE 10 MG TABLET PO (09:02)
[2020-04-23] MEDS: PANTOPRAZOLE 40 MG TABLET PO ×2 (09:02→17:34)
--- NOTE | 2020-04-23 10:48 | WPDNEURORHBP ---
Subjective Date/time seen: 04/23/20 10:48 80 years old lady with left hemiparesis has been involved in the physical therapy and occupational therapy and has been ambulating with a wheeled walker up to 150ft using a contact guard Review of Systems Review of Systems: All systems reviewed & are unremarkable except as noted in HPI and below Functional Status Ambulation Ability Ability to Ambulate 10 Feet: Standby Assistance Ability to Ambulate 50 Feet With 2 Turns: Standby Assistance Ability to Ambulate 150 Feet: Standby Assistance Ambulation Assistive Devices: Walker, Wheeled Transfers Ability Ability to Transfer In/Out of Chair: Standby Assistance Exam Narrative: Exam Narrative: on examination she is awake alert cooperative in no obvious acute distress ear nose throat examination normal neck is supple there is no rhinorrhea mucous membranes are moist heart regular lungs clear abdomen soft neuro examination revealed her to have no change in the neurological status treatment will be continued as such she is definitely making improved Objective Data Vital Signs Vital Signs: Vital Signs - 24 hr 04/22/20 14:00 04/22/20 20:30 04/23/20 05:20 Temperature 36.3 C L 35.9 C L 36.2 C L Pulse Rate 82 80 70 Respiratory Rate 16 18 20 Blood Pressure 108/58 L 109/64 147/73 H Pulse Oximetry 100 100 96 Intake/Output Intake/Output: Intake & Output 04/20/20 04/21/20 04/22/20 04/23/20 23:59 23:59 23:59 23:59 Intake Total 924 699 8941 480 Balance 029 822 9877 480 Meds/Results Medications: Active Medications Generic Name Dose Route Start Last Admin Trade Name Freq PRN Reason Stop Dose Admin Acetaminophen 650 mg 03/31/20 16:42 Acetaminophen 325 Mg Tablet PO Q6H PRN Pain, Mild Aspirin 81 mg 04/01/20 09:00 04/23/20 09:01 Aspirin 81 Mg Chewable Tablet PO 81 mg DAILY PETE Administration Atorvastatin Calcium 40 mg 03/31/20 21:00 04/22/20 20:44 Atorvastatin 40 Mg Tablet PO 40 mg HS PETE Administration Benzonatate 100 mg 03/31/20 16:42 Benzonatate 100 Mg Capsule PO Q8H PRN Cough Bisacodyl 10 mg 03/31/20 16:42 04/04/20 09:58 Bisacodyl 5 Mg Tablet Ec PO 10 mg Q24H PRN Administration Constipation Clopidogrel Bisulfate 75 mg 04/01/20 09:00 04/23/20 09:01 Clopidogrel Bisulfate 75 Mg Tablet PO 75 mg DAILY PETE Administration Dicyclomine HCl 10 mg 04/14/20 17:00 04/23/20 09:01 Dicyclomine Hcl 10 Mg Capsule PO 10 mg BID PETE Administration Ezetimibe 10 mg 04/01/20 09:00 04/23/20 09:02 Ezetimibe 10 Mg Tablet PO 10 mg DAILY PETE Administration Lactulose 30 gm 04/04/20 09:48 04/21/20 08:35 Lactulose 20 Gm/30 Ml Udc PO 30 gm DAILY PRN Administration Constipation Magnesium Hydroxide 30 ml 03/31/20 16:42 Magnesium Hydroxide Susp 30 Ml Udc PO Q6H PRN Indigestion Meclizine HCl 25 mg 03/31/20 16:42 Meclizine Hcl 25 Mg Tablet PO Q8H PRN Dizziness Melatonin 5 mg 03/31/20 16:42 Melatonin 5 Mg Tablet PO HS PRN Sleep Pantoprazole Sodium 40 mg 03/31/20 17:00 04/23/20 09:02 Pantoprazole 40 Mg Tablet PO 40 mg BID PETE Administration Senna/Docusate Sodium 2 tab 04/17/20 08:00 Senna/Docusate Sodium Tablet PO HS PRN Constipation Progress Note: A&P Assessment and Plan (1) Hyperlipidemia: Code(s): E78.5 - Hyperlipidemia, unspecified Status: Acute (2) Hypertension: Code(s): I10 - Essential (primary) hypertension Status: Acute (3) Nystagmus: Code(s): H55.00 - Unspecified nystagmus Status: Acute (4) Diplopia: Code(s): H53.2 - Diplopia Status: Acute (5) Ataxia: Code(s): R27.0 - Ataxia, unspecified Status: Acute (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
[2020-04-23 14:00] VITALS: BP 107/52; PULSE 87; RESP 18; TEMP 36.6; O2SAT 98
[2020-04-23] MEDS: ATORVASTATIN 40 MG TABLET PO (20:18)
[2020-04-23 22:00] VITALS: BP 125/60; PULSE 65; RESP 18; TEMP 36.1; O2SAT 97
[2020-04-24 06:00] VITALS: BP 131/74; PULSE 73; RESP 17; TEMP 36.1; O2SAT 99
[2020-04-24 08:30] VITALS: PULSE 73; RESP 17; O2SAT 99
[2020-04-24] MEDS: ASPIRIN 81 MG CHEWABLE TABLET PO (08:30)
[2020-04-24] MEDS: BENZONATATE 100 MG CAPSULE PO (08:30)
[2020-04-24] MEDS: CLOPIDOGREL BISULFATE 75 MG TABLET PO (08:31)
[2020-04-24] MEDS: PANTOPRAZOLE 40 MG TABLET PO (08:31)
[2020-04-24] MEDS: EZETIMIBE 10 MG TABLET PO (08:31)
[2020-04-24] MEDS: DICYCLOMINE HCL 10 MG CAPSULE PO (08:31)
--- NOTE | 2020-04-24 11:41 | WPDNEURORHBP ---
Subjective Date/time seen: 04/24/20 11:41 80 years old with left hemiparesis involving the physical therapy and occupational therapy definitely making significant improvement has no specific complaints Review of Systems Review of Systems: All systems reviewed & are unremarkable except as noted in HPI and below Functional Status Ambulation Ability Ability to Ambulate 10 Feet: Standby Assistance Ability to Ambulate 50 Feet With 2 Turns: Standby Assistance Ability to Ambulate 150 Feet: Standby Assistance Ambulation Assistive Devices: Walker, Wheeled Transfers Ability Ability to Transfer In/Out of Chair: Standby Assistance Exam Narrative: Exam Narrative: on examination awake alert in no obvious acute distress ear nose throat examination normal neck supple heart regular lungs clear abdomen is soft examination unchanged Objective Data Vital Signs Vital Signs: Vital Signs - 24 hr 04/23/20 14:00 04/23/20 22:00 04/24/20 06:00 Temperature 36.6 C 36.1 C L 36.1 C L Pulse Rate 87 65 73 Respiratory Rate 18 18 17 Blood Pressure 107/52 L 125/60 131/74 Pulse Oximetry 98 97 99 04/24/20 08:30 Temperature Pulse Rate 73 Respiratory Rate 17 Blood Pressure Pulse Oximetry 99 Intake/Output Intake/Output: Intake & Output 04/21/20 04/22/20 04/23/20 04/24/20 23:59 23:59 23:59 23:59 Intake Total 960 1080 960 240 Output Total 1250 Balance 960 1080 -290 240 Meds/Results Medications: Active Medications Generic Name Dose Route Start Last Admin Trade Name Freq PRN Reason Stop Dose Admin Acetaminophen 650 mg 03/31/20 16:42 Acetaminophen 325 Mg Tablet PO Q6H PRN Pain, Mild Aspirin 81 mg 04/01/20 09:00 04/24/20 08:30 Aspirin 81 Mg Chewable Tablet PO 81 mg DAILY PETE Administration Atorvastatin Calcium 40 mg 03/31/20 21:00 04/23/20 20:18 Atorvastatin 40 Mg Tablet PO 40 mg HS PETE Administration Benzonatate 100 mg 03/31/20 16:42 04/24/20 08:30 Benzonatate 100 Mg Capsule PO 100 mg Q8H PRN Administration Cough Bisacodyl 10 mg 03/31/20 16:42 04/04/20 09:58 Bisacodyl 5 Mg Tablet Ec PO 10 mg Q24H PRN Administration Constipation Clopidogrel Bisulfate 75 mg 04/01/20 09:00 04/24/20 08:31 Clopidogrel Bisulfate 75 Mg Tablet PO 75 mg DAILY PETE Administration Dicyclomine HCl 10 mg 04/14/20 17:00 04/24/20 08:31 Dicyclomine Hcl 10 Mg Capsule PO 10 mg BID PETE Administration Ezetimibe 10 mg 04/01/20 09:00 04/24/20 08:31 Ezetimibe 10 Mg Tablet PO 10 mg DAILY PETE Administration Lactulose 30 gm 04/04/20 09:48 04/21/20 08:35 Lactulose 20 Gm/30 Ml Udc PO 30 gm DAILY PRN Administration Constipation Magnesium Hydroxide 30 ml 03/31/20 16:42 Magnesium Hydroxide Susp 30 Ml Udc PO Q6H PRN Indigestion Meclizine HCl 25 mg 03/31/20 16:42 Meclizine Hcl 25 Mg Tablet PO Q8H PRN Dizziness Melatonin 5 mg 03/31/20 16:42 Melatonin 5 Mg Tablet PO HS PRN Sleep Pantoprazole Sodium 40 mg 03/31/20 17:00 04/24/20 08:31 Pantoprazole 40 Mg Tablet PO 40 mg BID PETE Administration Senna/Docusate Sodium 2 tab 04/17/20 08:00 Senna/Docusate Sodium Tablet PO HS PRN Constipation Progress Note: A&P Assessment and Plan (1) Hyperlipidemia: Code(s): E78.5 - Hyperlipidemia, unspecified Status: Acute (2) Hypertension: Code(s): I10 - Essential (primary) hypertension Status: Acute (3) Nystagmus: Code(s): H55.00 - Unspecified nystagmus Status: Acute (4) Diplopia: Code(s): H53.2 - Diplopia Status: Acute (5) Ataxia: Code(s): R27.0 - Ataxia, unspecified Status: Acute (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
[2020-04-24 14:00] VITALS: BP 119/66; PULSE 106; RESP 20; TEMP 37.1; O2SAT 100
--- NOTE | 2020-04-25 12:28 | PM.DS ---
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 Patient had comorbid condition of hyperlipidemia and hypertension but she was never a smoker. Throughout the hospitalization no other physician was involved in her care and she was actively involved in the physical therapy and occupational therapy. At the time of discharge her condition significantly improved ADMISSION FUNCTION: Eating [Set Up Only] Oral Care [] substantially Toileting Hygiene [] substantial Shower/Bathing [] partial assistance Upper Body Dressing [] partial assistance Lower Body Dressing [] substantial Donning/[place] [employer] [] substantial Rolling Left and Right [] partial assistance Sit to Lying [] supervision Lying to Sitting [] supervision Sit to Stand [] substantial Bed to Chair Transfers [] substantial Toilet Transfers [] partial assistance Car Transfers [] unable Walking 10' [] substantial Walking 50' with Two Turns [] unable Walking 150' [] unable Curb or Step [] unable 4 Steps [] unable 12 Steps [] unable Picking Up Object [] partial assistance [Wheelchair Mobility 50'] [] partial assistance [Wheelchair Mobility 150'] [] unable GOALS: Eating [INDEPENDENT] Oral Care [INDEPENDENT] Toileting Hygiene supervision Shower/Bathing supervision Upper Body Dressing setup Lower Body Dressing supervision Donning/[place] [employer] setup Rolling Left and Right [INDEPENDENT] Sit to Lying [INDEPENDENT] Lying to Sitting [INDEPENDENT] Sit to Stand supervision Bed to Chair Transfers supervision Toilet Transfers supervision Car Transfers supervision Walking 10' supervision Walking 50' with Two Turns supervision Walking 150' not applicable] Curb or Step supervision] 4 Steps partial assistance 12 Steps [ partial assistance Picking Up Object [INDEPENDENT] [Wheelchair Mobility 50'] [INDEPENDENT] [Wheelchair Mobility 150'] [INDEPENDENT] DISCHARGE PERFORMANCE: Eating set up Oral Care set up Toileting Hygiene supervision Shower/Bathing supervision Upper Body Dressing [INDEPENDENT] Lower Body Dressing supervision Donning/[place] [employer] [INDEPENDENT] Rolling Left and Right [INDEPENDENT] Sit to Lying [INDEPENDENT] Lying to Sitting [INDEPENDENT] Sit to Stand supervision Bed to Chair Transfers supervision Toilet Transfers supervision Car Transfers supervision Walking 10' super vision Walking 50' with Two Turns supervision Walking 150' supervision Curb or Step partial assistance 4 Steps partial assistance 12 Steps unable Picking Up Object [INDEPENDENT] [Wheelchair Mobility 50'] [INDEPENDENT] [Wheelchair Mobility 150'] [INDEPENDENT] during the entire hospitalization patient was actively involved in the physical therapy and occupational therapy. Patient had no falls or injuries during the entire hospitalization. Patient was discharged home. Patient's condition improved DS: Summary Time Spent with Patient Time attestation: Total time spent providing and/or coordinating discharge services: Discharge Plan Discharge Attending physician on discharge: Lebron Simon Discharging Clinician: Donato Perez Patient Disposition: Home Health Service Discharge Instructions: Per Care Coordination: Home Health services have been arranged through [facility]. [facility] can be contacted at [phone] or [phone]. Please fax discharge instructions to [facility] at [phone]
== END 2020-04-24 14:30 | disposition home health service (06) | DRG 57 ==
PROVIDERS: Psychiatry & Neurology Neurology; Admitting Provider Psychiatry & Neurology Neurology; PCP Family Medicine; Visit Provider Psychiatry & Neurology Neurology
DX: I69.354 Hemiplegia and hemiparesis following cerebral infarction affecting left non-dominant side (principal); I10 Essential (primary) hypertension; I69.398 Other sequelae of cerebral infarction; H53.2 Diplopia; H55.00 Unspecified nystagmus; E78.5 Hyperlipidemia, unspecified; K59.00 Constipation, unspecified; I65.22 Occlusion and stenosis of left carotid artery; Z79.02 Long term (current) use of antithrombotics/antiplatelets; Z79.82 Long term (current) use of aspirin
CPT/HCPCS: 36415; 80048; 81001; 85025; 92507; 92523; 97110; 97112; 97116; 97129; 97130; 97162; 97165; 97530; 97535; 97542; A9270